=== PATIENT | male | born 1960 | race Caucasian/White ===

== ENCOUNTER 2021-08-21 18:20 | Emergency (ER) | payer OTHER, SELFPAY ==
--- NOTE | 2021-08-21 19:02 | RAD REPORT ---
EXAM DESCRIPTION: RAD - Hand Left 3 View - 08/21/2021 6:50 pm CLINICAL HISTORY: PAIN COMPARISON: No comparisons FINDINGS: No acute fracture or dislocation is seen.
[2021-08-21] MEDS ORDERED: HYDROCODONE/APAP 10/325 TAB ONE (21:03)
[2021-08-21] MEDS ORDERED: IBUPROFEN 400 MG TAB ONE (21:03)
--- NOTE | 2021-08-21 21:58 | ER ---
Nurse's Notes [facility] Name: Blas Sanchez Age: 61 yrs Sex: Male : 1960 Arrival Date: 08/21/2021 Time: 18:22 Bed 11 Private MD: Diagnosis: Other sprain of left thumb Presentation: 08/21 18:33 Chief complaint: Patient states: he fell down on his left hand and his thumb 'went ap3 backward'. Patient states he heard a 'pop' and since then he has been experiencing severe pain in the left thumb and has not been able to move it well. Coronavirus screen: At this time, the client does not indicate any symptoms associated with coronavirus-19. Ebola Screen: No symptoms or risks identified at this time. Initial Sepsis Screen: Does the patient meet any 2 criteria? No. Patient's initial sepsis screen is negative. Does the patient have a suspected source of infection? No. Patient's initial sepsis screen is negative. Risk Assessment: Do you want to hurt yourself or someone else? Patient reports no desire to harm self or others. Onset of symptoms was August 21, 2021. 18:33 Method Of Arrival: Ambulatory ap3 18:33 Acuity: LAVELL 4 ap3 Triage Assessment: 18:35 General: Appears uncomfortable, Behavior is anxious, restless. Pain: Complains of pain ap3 in left hand Pain currently is 10 out of 10 on a pain scale. Pain began suddenly. Neuro: Level of Consciousness is awake, alert, obeys commands, Oriented to person, place, time, situation. Cardiovascular: Patient's skin is warm and dry. Respiratory: Airway is patent Respiratory effort is even, unlabored. Musculoskeletal: Range of motion: limited in IP of left thumb, MCP of left thumb and CMC of left thumb. Injury Description: fall from standing. Historical: - Allergies: 18:34 No Known Allergies; ap3 - PMHx: 18:34 Diabetes mellitus; Hypertensive disorder; ap3 - Immunization history:: Client reports receiving the 2nd dose of the Covid vaccine. - Social history:: Smoking status: Patient denies any tobacco usage or history of. Screenin:37 Abuse screen: Denies threats or abuse. Nutritional screening: No deficits noted. ap3 Tuberculosis screening: No symptoms or risk factors identified. 20:58 Fall Risk None identified. ld1 Assessment: 20:58 Reassessment: See triage assessment. ld1 22:35 Reassessment: Patient appears in no apparent distress at this time. No changes from ld1 previously documented assessment. Patient and/or family updated on plan of care and expected duration. Pain level reassessed. Patient is alert, oriented x 3, equal unlabored respirations, skin warm/dry/pink. Vital Signs: 18:33 Pulse 79; Resp 17; Temp 98.7; Pulse Ox 97% ; Weight 106.59 kg; Height 5 ft. 8 in. ap3 (172.72 cm); Pain 10/10; 18:35 BP 158 / 110; ap3 20:58 BP 149 / 99; Pulse 83; Resp 18; Pulse Ox 98% on R/A; Pain 8/10; ld1 22:35 BP 142 / 98; Pulse 84; Resp 18; Pulse Ox 98% on R/A; Pain 3/10; ld1 18:33 Body Mass Index 35.73 (106.59 kg, 172.72 cm) ap3 ED Course: 18:22 Patient arrived in ED. am2 18:34 Triage completed. ap3 18:37 Arm band placed on right wrist. ap3 18:52 XRAY Hand LEFT 3 View In Process Unspecified. EDMS 19:20 Jourdan Bourne PA is PHCP. cp 19:20 Sandip Lang MD is Attending Physician. cp 20:58 Raquel Dudley, BRANDON is Primary Nurse. ld1 20:58 Patient has correct armband on for positive identification. Placed in gown. Bed in low ld1 position. Call light in reach. Side rails up X2. Pulse ox on. NIBP on. Door closed. Noise minimized. Warm blanket given. 20:58 No provider procedures requiring assistance completed. Patient did not have IV access ld1 during this emergency room visit. 21:57 Moisés Cid MD is Referral Physician. cp Administered Medications: 20:58 Drug: Ibuprofen 800 mg Route: PO; ld1 21:45 Follow up: Response: No adverse reaction eh3 20:58 Drug: HYDROcodone-acetaminophen 10 mg-325 mg 1 tabs Route: PO; ld1 21:45 Follow up: Response: No adverse reaction eh3 Medication: 22:35 VIS not applicable for this client. ld1 Outcome: 21:57 Discharge ordered by . cp 22:35 Discharged to home ambulatory. ld1 22:35 Condition: stable 22:35 Discharge instructions given to patient, family, Instructed on discharge instructions, follow up and referral plans. medication usage, Demonstrated understanding of instructions, follow-up care, medications, Prescriptions given X 3. 22:36 Patient left the ED. ld1 Signatures: Dispatcher [employer] EDMS Jourdan Bourne PA PA cp Moreno, Amanda am2 Seema Orr RN RN ap3 Raquel Dudley RN RN ld1 Debra Buckley 3
--- NOTE | 2021-08-21 21:58 | EDPHYS ---
Physician Documentation [facility] Name: Blas Sanchez Age: 61 yrs Sex: Male : 1960 Arrival Date: 08/21/2021 Time: 18:22 Bed 11 Private MD: ED Physician Sandip Lang HPI: 08/21 21:00 This 61 yrs old Male presents to ER via Ambulatory with complaints of Thumb Injury, cp Hand Pain. 21:00 The patient or guardian reports decreased range of motion, injury, pain. cp 21:00 The complaints affect the left thumb. Context: resulted from a fall, on an outstretched cp hand. Onset: The symptoms/episode began/occurred today. Associated signs and symptoms: Pertinent negatives: cyanosis distally, decreased sensation distally. Historical: - Allergies: 18:34 No Known Allergies; ap3 - PMHx: 18:34 Diabetes mellitus; Hypertensive disorder; ap3 - Immunization history:: Client reports receiving the 2nd dose of the Covid vaccine. - Social history:: Smoking status: Patient denies any tobacco usage or history of. ROS: 21:05 MS/extremity: Positive for pain, swelling, tenderness, of the left thumb, Negative for cp deformity. 21:05 Constitutional: Negative for chills, fever. cp 21:05 Neck: Negative for pain with movement, pain at rest. 21:05 Back: Negative for pain at rest, pain with movement. 21:05 Neuro: Negative for numbness. 21:05 All other systems are negative. Exam: 21:10 Constitutional: The patient appears in no acute distress, alert, awake, well developed, cp well nourished, uncomfortable. 21:10 Head/Face: Normocephalic, atraumatic. cp 21:10 Neck: ROM/movement: is normal, is supple, without pain, no range of motions limitations. 21:10 Chest/axilla: Inspection: normal. 21:10 Cardiovascular: Rate: normal, Pulses: Pulses are 2+ in left radial artery. 21:10 Respiratory: the patient does not display signs of respiratory distress, Respirations: normal. 21:10 Musculoskeletal/extremity: Extremities: grossly normal except: noted in the left thumb: pain, swelling, tenderness, ROM: limited passive range of motion due to pain, in the MCP of left thumb, Perfusion: the extremity is normally perfused throughout, the left thumb Severe pain noted. Vital Signs: 18:33 Pulse 79; Resp 17; Temp 98.7; Pulse Ox 97% ; Weight 106.59 kg; Height 5 ft. 8 in. ap3 (172.72 cm); Pain 10/10; 18:35 BP 158 / 110; ap3 20:58 BP 149 / 99; Pulse 83; Resp 18; Pulse Ox 98% on R/A; Pain 8/10; ld1 22:35 BP 142 / 98; Pulse 84; Resp 18; Pulse Ox 98% on R/A; Pain 3/10; ld1 18:33 Body Mass Index 35.73 (106.59 kg, 172.72 cm) ap3 Procedures: 22:15 Splinting: Splint applied to left thumb using Orthoglass splint, thumb spica type. cp applied by myself. tech. Examined by me, post splint application: neurovascular intact, Patient tolerated well. MDM: 20:43 Patient medically screened. cp 21:57 Data reviewed: vital signs, nurses notes, radiologic studies, plain films. cp 21:57 Differential diagnosis: dislocation, closed fracture, sprain. Test interpretation: by cp ED physician or midlevel provider: plain radiologic studies. Counseling: I had a detailed discussion with the patient and/or guardian regarding: the historical points, exam findings, and any diagnostic results supporting the discharge/admit diagnosis, radiology results, the need for outpatient follow up, a hand specialist, to return to the emergency department if symptoms worsen or persist or if there are any questions or concerns that arise at home. Response to treatment: the patient's symptoms have markedly improved after treatment, and as a result, I will discharge patient. 08/21 18:38 Order name: XRAY Hand LEFT 3 View ap3 08/21 21:54 Order name: Thumb Spica Splint cp Administered Medications: 20:58 Drug: Ibuprofen 800 mg Route: PO; ld1 21:45 Follow up: Response: No adverse reaction eh3 20:58 Drug: HYDROcodone-acetaminophen 10 mg-325 mg 1 tabs Route: PO; ld1 21:45 Follow up: Response: No adverse reaction eh3 Disposition Summary: 08/21/21 21:57 Discharge Ordered Location: Home cp Problem: new cp Symptoms: have improved cp Condition: Stable cp Diagnosis - Other sprain of left thumb cp Followup: cp - With: Moisés Cid MD - When: 2 - 3 days - Reason: Recheck today's complaints Discharge Instructions: - Discharge Summary Sheet cp - Thumb Sprain cp Forms: - Medication Reconciliation Form cp - Thank You Letter cp - Antibiotic Education cp - Prescription Opioid Use cp Prescriptions: - Ibuprofen 800 mg Oral Tablet - take 1 tablet by ORAL route every 8 hours As needed take with food; 30 tablet; cp Refills: 0, Product Selection Permitted - Tramadol 50 mg Oral Tablet - take 1 tablet by ORAL route every 8 hours as needed; 12 tablet; Refills: 0, cp Product Selection Permitted Addendum: 08/24/2021 03:56 Co-signature as Attending Physician, Sandip Lang MD. [facility] Signatures: Dispatcher [employer] EDMS Jourdan Bourne PA PA cp Prokisch, Amanda, RN RN ap3 Sandip Lang MD MD mh7 Raquel Dudley RN RN ld1 Debra Buckley 3
[2021-08-21 23:35] VITALS: TEMP 98.7
[2021-08-21 23:37] VITALS: O2SAT 98
[2021-08-21 23:40] VITALS: BP 142/98
== END 2021-08-21 22:36 | disposition home or self-care (01) ==
LOC: ER 18:20
DX: S63.682A Other sprain of left thumb, initial encounter (principal); E11.9 Type 2 diabetes mellitus without complications; I10 Essential (primary) hypertension
CPT/HCPCS: 99284

== ENCOUNTER 2023-05-02 11:29 | Inpatient (IN) | payer MEDICAID, OTHER, SELFPAY ==
[2023-05-02] MEDS ORDERED: NA CHLORIDE 0.9% 1,000 ML ONE ×2 (12:07→17:36)
[2023-05-02] MEDS ORDERED: INSULIN REGULAR (HUMAN) 100 UNIT/ML ONE ×3 (12:28→21:59)
[2023-05-02 12:31] LABS: Absolute Basophils 0.1 K/uL (0-0.5); Absolute Lymphocytes (CBC) 1.4 K/uL (0.7-4.9); Absolute Monocytes 0.7 K/uL (0.1-1.3); Absolute Neutrophil 6.2 K/uL (1.8-8.0); Basophils % 0.6 % (0-1.3); Eosinophils % 0.2 % (0-4.4); Hematocrit 42.6 % (39.6-49.0); Hemoglobin 13.6 g/dL (13.6-17.9); Lymphocytes % 16.5 % (15.3-44.8); MCH 30.2 pg (27.0-35.0); MCV 94.5 fL (80-100); MPV 7.6 fL (7.6-11.3); Monocytes % 8.9 % (3.3-12.3); Neutrophils % 73.8 % (41.7-73.7); Platelets 337 thou/uL (152-406); RBC Red Blood Cell Count 4.51 M/uL (4.33-5.43); Red Cell Distribution Width 13.2 % (12.1-15.2)
[2023-05-02 12:39] LABS: PT Prothrombin Time 11.1 SECONDS (9.5-12.5); PTT, Activated Partial Thromb 30.8 SECONDS (24.3-36.9); Protime INR 1.01
[2023-05-02 12:47] LABS: SARS-CoV-2 Antigen CONTROL BLUE LINE VIS/BG OK; SARS-CoV-2 Antigen Rapid Res Negative (Negative)
[2023-05-02 12:50] LABS: Specific Gravity 1.028 (1.005-1.030); Sqamous Epithelial <5 /HPF (None Seen); Urine Bacteria <20 /HPF (<20); Urine Bilirubin NEGATIVE (Negative); Urine Blood 3+ (OVER) (Negative); Urine Clarity Clear (Clear); Urine Color Colorless (Yellow); Urine Culture Reflex Order NOT NEEDED; Urine Glucose 4+ (Over) (Negative); Urine Ketones 1+ (Negative); Urine Microscopic Reflex YN ORDER UMIC; Urine Mucus Slight /HPF (None Seen); Urine Nitrite NEGATIVE (Negative); Urine Protein TRACE (Negative); Urine RBC >50 /HPF (None Seen); Urine Urobilinogen Normal (Normal); Urine WBC <5 /HPF (<5); Urine Yeast (Budding) Occasional /HPF (None Seen)
[2023-05-02 12:54] LABS: Albumin 2.2 g/dL (3.4-5.0); Albumin/Globulin Ratio 0.5 (1.1-1.8); Anion Gap 15.5 mEq/L (5.0-15.0); Bilirubin Total 0.7 mg/dL (0.2-1.0); Globulin 4.6 g/dL (2.3-3.5); Potassium 4.5 mEq/L (3.5-5.1); Protein, Total 6.8 g/dL (6.4-8.2); Troponin High Sensitivity 5.6 pg/mL (<58.9)
--- NOTE | 2023-05-02 12:56 | RAD REPORT ---
EXAM DESCRIPTION: RAD - Chest Single View - 05/02/2023 12:48 pm CLINICAL HISTORY: Cough;Dyspnea Chest pain. COMPARISON: No comparisons FINDINGS: Portable technique limits examination quality. Moderate airspace opacity is present in the left mid lung most likely representing pneumonia. The heather gs are otherwise clear. The heart is normal in size. No displaced fractures. IMPRESSION: Suspected left mid lung pneumonia. Follow-up imaging after appropriate treatment to ensu re clearance is recommended.
--- NOTE | 2023-05-02 13:38 | RAD REPORT ---
EXAM DESCRIPTION: CTAbdomen Pelvis W Contrast - 05/02/2023 1:17 pm CLINICAL HISTORY: Abdominal pain. Abd pain;Nausea / vomiting COMPARISON: No comparisons TECHNIQUE: Biphasic CT imaging of the abdomen and pelvis was performed with 100 ml non-ionic IV cont rast. All CT scans are performed using dose optimization technique as appropriate and may include automated exposure control or mA/KV adjustment according to patient size. FINDINGS: The lung bases are clear. The liver demonstrates mild fatty infiltration. The spleen, pancreas, and kidneys are within normal l imits. Nodularity is seen of both adrenal glands, likely benign. No bowel obstruction, free air, free fluid or abscess. Prominent stool is present throughout the colo n. The appendix is normal. No evidence of significant lymphadenopathy. No suspicious bony findings. IMPRESSION: No acute intra-abdominal or pelvic finding. Mild fecal retention. Mild fatty liver.
[2023-05-02] MEDS ORDERED: AZITHROMYCIN 500 MG INJ IVPB ONE (13:55)
[2023-05-02] MEDS ORDERED: CEFTRIAXONE 1000 MG/VIAL ONE (13:55)
[2023-05-02] MEDS ORDERED: NA CHLORIDE 0.9% 50 ML ONE (13:57)
[2023-05-02] MEDS ORDERED: NA CHLORIDE 0.9% 250 ML ONE (13:57)
--- NOTE | 2023-05-02 14:03 | EDPHYS ---
Physician Documentation [facility] Name: Blas Sanchez Age: 63 yrs Sex: Male : 1960 Arrival Date: 05/02/2023 Time: 11:29 Bed 20 Private MD: ED Physician Juwan Morse HPI: 05/01 11:51 This 63 yrs old Male presents to ER via Wheelchair with complaints of Breathing rn Difficulty, Abdominal Pain, Vomiting. 11:51 The patient has shortness of breath at rest, with light activity. rn 11:51 Onset: The symptoms/episode began/occurred 5 day(s) ago. Duration: The symptoms are rn continuous. The patient's shortness of breath is aggravated by coughing, is alleviated by nothing. Severity of symptoms: At their worst the symptoms were moderate in the emergency department the symptoms are unchanged. The patient has not experienced similar symptoms in the past. Patient reports shortness of breath, feeling ill with vomiting and diarrhea for the last 4 to 5 days. Began to have chest discomfort and worsening shortness of breath yesterday. 911 was called but was not transported for multiple reasons. Patient reports increased shortness of breath today so came in for evaluation. Reports left-sided chest pain with deep inspiration, productive cough, still having vomiting and diarrhea.. Historical: - Allergies: 11:39 No Known Allergies; iw - PMHx: 11:39 diabetes mellitus; Hypertensive disorder; neuropathy; iw - PSHx: 11:39 None; iw - Immunization history:: Adult Immunizations not up to date. - Social history:: Smoking status: Patient/guardian denies using tobacco, the patient reports quitting approximately 15 years ago. - Family history:: not pertinent. - Hospitalizations: : No recent hospitalization is reported. ROS: 11:51 Constitutional: Negative for fever, chills, and weight loss, Cardiovascular: Negative rn for chest pain, palpitations, and edema, Respiratory: Positive for cough and shortness of breath Abdomen/GI: Positive for abdominal pain/nausea/vomiting/diarrhea Back: Negative for injury and pain, MS/Extremity: Negative for injury and deformity, Skin: Negative for injury, rash, and discoloration, Neuro: Positive for generalized weakness Exam: 11:51 Constitutional: This is a well developed, well nourished patient who is awake, alert, rn moderate tachypnea Head/Face: Normocephalic, atraumatic. ENT: Dry mucous membranes, no stridor Cardiovascular: Tachycardic, regular. Respiratory: Moderate tachypnea, diminished bilateral bases Abdomen/GI: Soft, nontender Skin: Mottled skin of abdominal wall MS/ Extremity: Pulses equal, no cyanosis. Neuro: Awake and alert, GCS 15 Vital Signs: 11:37 BP 138 / 106; Pulse 116; Resp 19; Temp 97.8; Pulse Ox 99% on R/A; Weight 79.38 kg; iw Height 5 ft. 8 in. ; 12:30 BP 141 / 106; Pulse 106; Resp 28; Pulse Ox 96% on R/A; db 13:41 BP 134 / 107; Pulse 99; Resp 18; Pulse Ox 96% on R/A; db 14:00 BP 116 / 88; Pulse 95; Resp 18; Pulse Ox 97% on R/A; db 15:00 BP 128 / 94; Pulse 100; Resp 20; Pulse Ox 97% on R/A; db 11:37 Body Mass Index 26.61 (79.38 kg, 172.72 cm) iw MDM: 11:34 Patient medically screened. rn 14:00 Differential diagnosis: Anemia Chronic Obstructive Pulmonary Disease Myocardial rn Infarction pneumonia, Pneumothorax pulmonary edema. Data reviewed: vital signs, nurses notes, lab test result(s), EKG, radiologic studies, and as a result, I will admit patient. Care significantly affected by the following chronic conditions: Diabetes, Hypertension. Counseling: I had a detailed discussion with the patient and/or guardian regarding the historical points, exam findings, and any diagnostic results supporting the discharge/admit diagnosis, lab results, radiology results, the need for further work-up and treatment in the hospital. Response to treatment: the patient's symptoms have mildly improved after treatment, and as a result, I will admit patient. ED course: I personally spent 35 minutes engaged in work directly related to the individual patient's care. This does not include any time spent performing procedures. The patient has been deemed critically ill because of severe hyperglycemia greater than 1000, altered mental status, pneumonia and management of possible sepsis and consultation time.. 05/01 11:50 Order name: Blood Culture Adult (2) rn 05/01 11:50 Order name: CBC with Diff; Complete Time: 12:40 rn 05/01 11:50 Order name: CMP; Complete Time: 12:57 rn 05/01 11:50 Order name: Lactate w/ 2H reflex if indic.; Complete Time: 12:57 rn 05/01 11:50 Order name: Protime (+inr); Complete Time: 12:40 rn 05/01 11:50 Order name: Ptt, Activated; Complete Time: 12:40 rn 05/01 11:50 Order name: Urinalysis w/ reflexes; Complete Time: 12:57 rn 05/01 11:50 Order name: BNP; Complete Time: 12:57 rn 05/01 11:50 Order name: SARS RAPID; Complete Time: 12:57 rn 05/01 11:50 Order name: Flu; Complete Time: 12:57 rn 05/01 11:51 Order name: Troponin High Sensitivity; Complete Time: 12:57 rn 05/01 12:38 Order name: Glucose, Ancillary Testing; Complete Time: 12:40 EDMS 05/01 14:04 Order name: Basic Metabolic Panel EDMS 05/01 14:04 Order name: Basic Metabolic Panel EDMS 05/01 14:04 Order name: Basic Metabolic Panel EDMS 05/01 14:04 Order name: Basic Metabolic Panel EDMS 05/01 14:04 Order name: Basic Metabolic Panel EDMS 05/01 14:04 Order name: Basic Metabolic Panel EDMS 05/01 14:04 Order name: Basic Metabolic Panel EDMS 05/01 14:04 Order name: CBC with Automated Diff EDMS 05/01 14:04 Order name: CBC with Automated Diff EDMS 05/01 14:04 Order name: CBC with Automated Diff EDMS 05/01 14:04 Order name: CBC with Automated Diff EDMS 05/01 14:04 Order name: Lipid Profile EDMS 05/01 14:04 Order name: Lipid Profile EDMS 05/01 14:04 Order name: Magnesium EDMS 05/01 14:04 Order name: Magnesium EDMS 05/01 14:04 Order name: Magnesium EDMS 05/01 14:04 Order name: Magnesium EDMS 05/01 11:50 Order name: Chest Single View XRAY; Complete Time: 12:57 rn 05/01 11:50 Order name: CT Abd/Pelvis - IV Contrast Only; Complete Time: 13:46 rn 05/01 11:50 Order name: EKG; Complete Time: 11:51 rn 05/01 11:50 Order name: Accucheck; Complete Time: 13: rn 05/01 11:50 Order name: Cardiac monitoring; Complete Time: 13: rn 05/01 11:50 Order name: EKG - Nurse/Tech; Complete Time: 12: rn 05/01 11:50 Order name: IV Saline Lock - Large Bore; Complete Time: 12: rn 05/01 11:50 Order name: Labs collected and sent; Complete Time: 12: rn 05/01 11:50 Order name: O2 Per Protocol; Complete Time: 13: rn 05/01 11:50 Order name: O2 Sat Monitoring; Complete Time: 13: rn 05/01 11:50 Order name: Vital Signs; Complete Time: 13: rn Administered Medications: 12:20 Drug: NS 0.9% IV 1000 ml IV at 1000 ml once Route: IV; Rate: 1000 ml; Site: left db antecubital; 16:00 Follow up: Response: No adverse reaction; IV Status: Completed infusion; IV Intake: db 1000ml 12:29 Drug: Insulin Regular Human Sub-Q 10 units Sub-Q once {Co-Signature: db (velma Kenyon RN).} Route: Sub-Q; Site: right upper arm; 16:14 Follow up: Response: No adverse reaction db 13:59 Drug: Insulin Regular Human IVP 10 units IVP once {Co-Signature: kd3 (Shira Vines RN).} Route: IVP; Site: left antecubital; 16:00 Follow up: Response: No adverse reaction db 14:14 Drug: Rocephin IV 1 grams IV at calculated rate once; Given slow IV push per pharmacy kd3 instructions Route: IV; Rate: calculated rate; Site: left antecubital; 16:14 Follow up: Response: No adverse reaction; IV Status: Completed infusion db 14:14 Drug: Zithromax IVPB 500 mg IVPB once over 1 hrs; mix in 250 mL NS Route: IVPB; Infused kd3 Over: 1 hrs; Site: left antecubital; 16:00 Follow up: Response: No adverse reaction; IV Status: Completed infusion; IV Intake: db 250ml Disposition: 14:02 Critical Care:. rn Disposition Summary: 05/02/23 14:03 Hospitalization Ordered Notes: Hospitalization Status: Inpatient Admission rn Provider: Markos Lanza rn Condition: Stable rn Problem: new rn Symptoms: have improved rn Bed/Room Type: Standard rn Location: Intensive Care Unit(05/02/23 15:01) eb Room Assignment: 6-(05/02/23 15:01) eb Diagnosis - Pneumonia, unspecified organism rn - Hyperglycemia, unspecified rn - Dehydration rn - Weakness rn Forms: - Medication Reconciliation Form rn - SBAR form rn - Leadership Thank You Letter city attorney time excluding procedures: 14:02 Critical care time: Bedside Care: 35 minutes. Total time: 35 minutes rn Signatures: Dispatcher [employer] EDAbbey Fitzpatrick, RN RN Juwan Damian MD MD rn Botello, Elizabeth eb Doucette, Kyli, RN RN kd3 Ivette Vergara RN RN Lisa Nicolas, RN RN Lisa Lin RN Shira Wei RN kd3 Corrections: (The following items were deleted from the chart) 15:01 14:03 Telemetry/MedSurg (Inpatient) rn eb 15:01 14:03 rn eb
--- NOTE | 2023-05-02 14:03 | ER ---
Nurse's Notes [facility] Name: lBas Sanchez Age: 63 yrs Sex: Male : 1960 Arrival Date: 05/02/2023 Time: 11:29 Bed 20 Private MD: Diagnosis: Pneumonia, unspecified organism;Hyperglycemia, unspecified;Dehydration;Weakness Presentation: 05/01 11:37 Chief complaint: Patient states: cough, dry heaving, diarrhea, chills, not feeling well iw X 10 days , no fever. Coronavirus screen: Client presents with at least one sign or symptom that may indicate coronavirus-19. Ebola Screen: Patient negative for fever greater than or equal to 101.5 degrees Fahrenheit, and additional compatible Ebola Virus Disease symptoms Patient denies exposure to infectious person. Patient denies travel to an Ebola-affected area in the 21 days before illness onset. No symptoms or risks identified at this time. Initial Sepsis Screen: Does the patient meet any 2 criteria? HR > 90 bpm. Does the patient have a suspected source of infection? No. Patient's initial sepsis screen is negative. Risk Assessment: Do you want to hurt yourself or someone else? Patient reports no desire to harm self or others. Onset of symptoms was April 22, 2023. 11:37 Method Of Arrival: Wheelchair iw 11:37 Acuity: LAVELL 3 iw Triage Assessment: 14:00 General: Appears in no apparent distress. uncomfortable. General: Behavior is calm, db cooperative. Respiratory:. Respiratory: Reports shortness of breath labored breathing Onset: The symptoms/episode began/occurred gradually, the patient has moderate shortness of breath. Historical: - Allergies: 11:39 No Known Allergies; iw - PMHx: 11:39 diabetes mellitus; Hypertensive disorder; neuropathy; iw - PSHx: 11:39 None; iw - Immunization history:: Adult Immunizations not up to date. - Social history:: Smoking status: Patient/guardian denies using tobacco, the patient reports quitting approximately 15 years ago. - Family history:: not pertinent. - Hospitalizations: : No recent hospitalization is reported. Screenin:[address] [facility] ED Fall Risk Assessment (Adult) History of falling in the last 3 months, db including since admission No falls in past 3 months (0 pts) Confusion or Disorientation No (0 pts) Intoxicated or Sedated No (0 pts) Impaired Gait No (0 pts) Mobility Assist Device Used No (0 pt) Altered Elimination No (0 pt) Score/Fall Risk Level 0 - 2 = Low Risk Oriented to surroundings, Maintained a safe environment. Abuse screen: Denies threats or abuse. Denies injuries from another. Nutritional screening: No deficits noted. Tuberculosis screening: No symptoms or risk factors identified. Assessment: 12:30 Reassessment: Patient appears in no apparent distress at this time. Patient and/or db family updated on plan of care and expected duration. Pain level reassessed. Patient is alert, oriented x 3, equal unlabored respirations, skin warm/dry/pink. General: Appears in no apparent distress. uncomfortable. Respiratory: Airway is patent Respiratory effort is even, unlabored, Respiratory pattern is regular, symmetrical, Respiratory: 13:00 Reassessment: Patient appears in no apparent distress at this time. Patient and/or db family updated on plan of care and expected duration. Pain level reassessed. Patient is alert, oriented x 3, equal unlabored respirations, skin warm/dry/pink. General: Appears in no apparent distress. uncomfortable, Behavior is calm, cooperative. Pain: Complains of pain in abdomen. Neuro: Level of Consciousness is awake, alert, obeys commands, Oriented to person, place, time, situation. Cardiovascular: Rhythm is regular. Respiratory: Airway is patent Respiratory effort is even, unlabored, Respiratory pattern is regular, symmetrical. 14:00 Reassessment: Patient appears in no apparent distress at this time. Patient and/or db family updated on plan of care and expected duration. Pain level reassessed. Patient is alert, oriented x 3, equal unlabored respirations, skin warm/dry/pink. 15:31 Reassessment: ATTEMPTED TO GIVE PATIENT REPORT TO ICU. NURSE ON 4TH FLOOR WITH A db PATIENT WILL GET REPORT WHEN RETURNS. Respiratory:. 15:48 Reassessment: PATIENT REPORT GIVEN TO ICU. db Vital Signs: 11:37 BP 138 / 106; Pulse 116; Resp 19; Temp 97.8; Pulse Ox 99% on R/A; Weight 79.38 kg; iw Height 5 ft. 8 in. ; 12:30 BP 141 / 106; Pulse 106; Resp 28; Pulse Ox 96% on R/A; db 13:41 BP 134 / 107; Pulse 99; Resp 18; Pulse Ox 96% on R/A; db 14:00 BP 116 / 88; Pulse 95; Resp 18; Pulse Ox 97% on R/A; db 15:00 BP 128 / 94; Pulse 100; Resp 20; Pulse Ox 97% on R/A; db 11:37 Body Mass Index 26.61 (79.38 kg, 172.72 cm) iw ED Course: 11:31 Patient arrived in ED. rg4 11:34 Juwan Morse MD is Attending Physician. rn 11:39 Triage completed. iw 11:40 Arm band placed on. iw 12:05 Lisa Kenyon, RN is Primary Nurse. db 12:20 Initial lab(s) drawn, by me, sent to lab. First set of blood cultures drawn EKG done, bc6 by ED staff, reviewed by Juwan Morse MD COVID swab sent to lab. Flu and/or RSV swab sent to lab. 12:22 Troponin High Sensitivity Sent. bc6 12:22 Flu Sent. bc6 12:22 SARS RAPID Sent. bc6 12:22 BNP Sent. bc6 12:23 Blood Culture Adult (2) Sent. bc6 12:23 CBC with Diff Sent. bc6 12:23 CMP Sent. bc6 12:23 Lactate w/ 2H reflex if indic. Sent. bc6 12:23 Protime (+inr) Sent. bc6 12:23 Ptt, Activated Sent. bc6 12:23 Inserted saline lock: 20 gauge in left antecubital area, using aseptic technique. Blood bc6 collected. 12:50 Chest Single View XRAY In Process Unspecified. EDMS 13:[address] via wheelchair. db 13:12 Patient has correct armband on for positive identification. Placed in gown. Bed in low db position. Call light in reach. Side rails up X 1. Provided Education on: LABS, RADIOLOGY, . Client placed on continuous cardiac and pulse oximetry monitoring. NIBP monitoring applied. seam stay stitcher on. Pulse ox on. NIBP on. Warm blanket given. 13:19 CT Abd/Pelvis - IV Contrast Only In Process Unspecified. EDMS 14:02 Markos Lanza MD is Hospitalizing Provider. rn 15:34 No provider procedures requiring assistance completed. Patient admitted, IV remains in db place. 15:35 Repeat lab(s) drawn. by me, sent to lab. db 15:35 Inserted saline lock: 22 gauge in right antecubital area, using aseptic technique. db Blood collected. Administered Medications: 12:20 Drug: NS 0.9% IV 1000 ml IV at 1000 ml once Route: IV; Rate: 1000 ml; Site: left db antecubital; 16:00 Follow up: Response: No adverse reaction; IV Status: Completed infusion; IV Intake: db 1000ml 12:29 Drug: Insulin Regular Human Sub-Q 10 units Sub-Q once {Co-Signature: evlma Martínez RN).} Route: Sub-Q; Site: right upper arm; 16:14 Follow up: Response: No adverse reaction db 13:59 Drug: Insulin Regular Human IVP 10 units IVP once {Co-Signature: [email or web address] (Shira Vines RN).} Route: IVP; Site: left antecubital; 16:00 Follow up: Response: No adverse reaction db 14:14 Drug: Rocephin IV 1 grams IV at calculated rate once; Given slow IV push per pharmacy kd3 instructions Route: IV; Rate: calculated rate; Site: left antecubital; 16:14 Follow up: Response: No adverse reaction; IV Status: Completed infusion db 14:14 Drug: Zithromax IVPB 500 mg IVPB once over 1 hrs; mix in 250 mL NS Route: IVPB; Infused kd3 Over: 1 hrs; Site: left antecubital; 16:00 Follow up: Response: No adverse reaction; IV Status: Completed infusion; IV Intake: db 250ml Medication: 15:34 VIS not applicable for this client. db Intake: 16:00 IV: 250ml; Total: 250ml. db 16:00 IV: 1000ml; Total: 1250ml. db Outcome: 14:03 Decision to Hospitalize by Provider. rn 15:34 Admitted to ICU accompanied by nurse, manoj 15:34 Condition: stable 15:34 Instructed on the need for admit, 16:15 Patient left the ED. db Signatures: Dispatcher [employer] EDAbbey Fitzpatrick RN RN iw Nieto, Roman, MD MD rn Garcia, Rubi rg4 Shira Vines RN RN kd3 Oliver, Kathy, RN RN ko1 Benton, Danielle RN Eliana Barone bc6 Lisa Kenyon RN db Shira Vines RN kd3 Corrections: (The following items were deleted from the chart) 15:34 13:00 General: Appears in no apparent distress. comfortable, Behavior is calm, db cooperative, db 16:12 15:35 Repeat lab(s) drawn. by me, sent to lab. db db
--- NOTE | 2023-05-02 14:05 | P.HP ---
Certification for Inpatient Patient admitted to: Inpatient With expected LOS: <2 Midnights <Bernie Sepulveda - Last Filed: 05/02/23 15:32> Patient History Date of Service: 05/02/23 <Markos Lanza - Last Filed: 05/02/23 14:44> Date of Service: 05/02/23 Reason for admission: HHNK History of Present Illness: 63 year old male with past medical history of diabetes mellitus; Hypertensive disorder; neuropathy presents to the ER via EMS for shortness of breath. He reports associated left-sided chest pain, productive cough, nausea vomiting diarrhea. He reports symptoms started 4 to 5 days ago is progressively getting worse. No reported fever, edema, dizziness. 7 BP 138 / 106; Pulse 116; Resp 19; Temp 97.8; Pulse Ox 99% on R/A; Weight 79.38 kg; Height 5 ft. 8 in Plan to admit for HHNK, pneumonia, dehydration, laboratory evaluation blood glucose greater than 1000, pseudohyponatremia, elevated BNP 712, early left shift 73.8, chest x- ray IMPRESSION: Suspected left mid lung pneumonia. Follow-up imaging after appropriate treatment to ensure clearance is recommended., CT of the abdomen pelvis IMPRESSION: No acute intra-abdominal or pelvic finding. Mild fecal retention. Mild fatty liver. <CocoBernie - Last Filed: 05/02/23 15:32> Review of Systems per HPI <KemarhazelBernie - Last Filed: 05/02/23 15:32> Physical Examination - Studies Laboratory Data (last 24 hrs) 05/02/23 05/02/23 05/02/23 12:20 12:20 12:20 WBC 8.40 Hgb 13.6 Hct 42.6 Plt Count 337 PT 11.1 INR 1.01 APTT 30.8 Sodium 125 L Potassium 4.5 BUN 34 H Creatinine 1.07 Glucose 1013 H* Total Bilirubin 0.7 AST 14 L ALT 27 Alkaline Phosphatase 354 H Microbiology Data (last 24 hrs): 05/02/23 12:20 Nasopharnyx Influenza Type A Antigen Screen - Final 05/02/23 12:20 Nasopharnyx Influenza Type B Antigen Screen - Final <Markos Lanza - Last Filed: 05/02/23 14:44> - Physical Exam General: Alert, In no apparent distress, Confused HEENT: Atraumatic, Normocephalic Neck: Supple, JVD not distended Respiratory: Expiratory wheezes, Inspiratory wheezes Cardiovascular: No edema, Normal pulses, Regular rate/rhythm Gastrointestinal: Normal bowel sounds, Other, Hyperactive Musculoskeletal: No clubbing (Nausea vomiting diarrhea), No swelling Integumentary: No rashes, No significant lesion Neurological: Other (Confused alert and oriented x 2) - Studies Laboratory Data (last 24 hrs) 05/02/23 05/02/23 05/02/23 12:20 12:20 12:20 WBC 8.40 Hgb 13.6 Hct 42.6 Plt Count 337 PT 11.1 INR 1.01 APTT 30.8 Sodium 125 L Potassium 4.5 BUN 34 H Creatinine 1.07 Glucose 1013 H* Total Bilirubin 0.7 AST 14 L ALT 27 Alkaline Phosphatase 354 H Microbiology Data (last 24 hrs): 05/02/23 12:20 Nasopharnyx Influenza Type A Antigen Screen - Final 05/02/23 12:20 Nasopharnyx Influenza Type B Antigen Screen - Final <Bernie Sepulveda - Last Filed: 05/02/23 15:32> Assessment and Plan - Plan Pt seen and examined. I agree with the note by the MICA SPREADER. Pt is a 63 yo male with past medical history of htn, DM,and neuropathy who presents with SOB. The SOB started a few days ago and progressively worsened to be associated with left- sided chest pain, productive cough, nausea, vomiting, and diarrhea. On ad mission, lab studies show wbc 8.4, Hgb 13.6, K 4.5, Cr 1.07 and glucose 1013. CXR shows left mid lung pneumonia. CT abd/pelvis is unremarkable except mild fecal retention and mild fatty liver. At bedside, pt is in NAD A/P: HHS: blood sugar is 1013. Will continue insulin drip per DKA protocol. Monitor anion gap. Will continue accuchek, SSI and ADA diet when blood glucose improve. Left mid lung pneumonia: Will continue iv abx. follow up blood cx. Fatty liver: Per CT abd: Will check LFTs Constipation: Will give prn miralax. Code: full <Markos Lanza - Last Filed: 03/22/24 14:44> - Plan Assessment plan HHNK Diabetes with hyperglycemia blood glucose greater than 1000 Lack of insurance Medication noncompliance Admit to ICU, insulin drip, presents to the ER via EMS for shortness of breath. He reports associated left- sided chest pain, productive cough, nausea vomiting diarrhea. He reports symptoms started 4 to 5 days ago is progressively getting worse. BP 138 / 106; Pulse 116; Resp 19; Temp 97.8; Pulse Ox 99% on R/A; Weight 79.38 kg; Height 5 ft. 8 in Plan to admit for HHNK, pneumonia, dehydration, laboratory evaluation blood glucose greater than 1000, pseudohyponatremia, elevated BNP 712, early left shift 73.8, chest x-ray IMPRESSION: Suspected left mid lung pneumonia. Follow-up imaging after appropriate treatment to ensure clearance is recommended., CT of the abdomen pelvis IMPRESSION: No acute intra-abdominal or pelvic finding. Mild fecal retention. Mild fatty liver. Acute hypoxic respiratory failure secondary to pneumonia History of COPD Former smoker IV Levaquin, IV cefepime Nebs, steroids, Pulmonary consult Fatty liver Hypertensive disorder neuropathy Full code Diet n.p.o. except ice DVT Lovenox Disposition Home Discharge Plan: Home - Advance Directives Does patient have a Living Will: No Does patient have a Durable POA for Healthcare: No - Code Status/Comfort Care Code Status: Full Code Critical Care: Yes Time Spent Managing Pts Care (In Minutes): 65 <Bernie Sepulveda - Last Filed: 05/02/23 15:32>
[2023-05-02] MEDS ORDERED: ALBUTEROL 2.5 MG/3 ML NEB SOL NEB PRN (14:23)
[2023-05-02] MEDS ORDERED: MORPHINE 4 MG/ML SYR IV PRN (14:30)
[2023-05-02] MEDS: CEFTRIAXONE 1,000 MG in NA CHLORIDE 0.9% 50 ML IVPB SCH (15:00)
[2023-05-02] MEDS: ARFORMOTEROL TARTRATE 15 MCG/2 ML VIAL.NEB NEB SCH (15:06)
[2023-05-02] MEDS: INSULIN -REGULAR HUMAN 100 UNIT in NA CHLORIDE 0.9% 100 ML IV SCH (15:10)
[2023-05-02 16:16] LABS: Anion Gap 10.8 mEq/L (5.0-15.0); Potassium 3.8 mEq/L (3.5-5.1)
[2023-05-02] MEDS: ONDANSETRON 4 MG/2 ML VIAL IV PRN (16:48)
[2023-05-02] MEDS ORDERED: ENOXAPARIN 40 MG/0.4 ML SQ ONE (17:36)
[2023-05-02] MEDS ORDERED: Levofloxacin 750mg IV 750 MG/150 ML BAG IV ONE (17:36)
[2023-05-02] MEDS: NA CHLORIDE 0.9% 1,000 ML IV SCH (17:40)
[2023-05-02] MEDS: Levofloxacin 750mg IV 750 MG/150 ML BAG IV SCH (17:40)
[2023-05-02] MEDS: ENOXAPARIN 40 MG/0.4 ML SQ SCH (17:40)
[2023-05-02] MEDS: INFLUENZA VACCINE (for 6+ mo) 0.5 ML DOSE IMVAC ONE (18:00)
[2023-05-02 18:04] VITALS: BMI 27.2
[2023-05-02 18:09] LABS: Specific Gravity > 1.030 (1.005-1.030); Sqamous Epithelial None Seen /HPF (None Seen); Urine Bacteria None Seen /HPF (<20); Urine Bilirubin NEGATIVE (Negative); Urine Blood 3+ (OVER) (Negative); Urine Clarity Clear (Clear); Urine Color Colorless (Yellow); Urine Culture Reflex Order NOT NEEDED; Urine Glucose 4+ (Over) (Negative); Urine Ketones NEGATIVE (Negative); Urine Microscopic Reflex YN ORDER UMIC; Urine Mucus Slight /HPF (None Seen); Urine Nitrite NEGATIVE (Negative); Urine Protein 1+ (Negative); Urine RBC >50 /HPF (None Seen); Urine Urobilinogen Normal (Normal); Urine Yeast (Budding) Many /HPF (None Seen)
[2023-05-02 19:24] LABS: Anion Gap 10.9 mEq/L (5.0-15.0); Potassium 3.9 mEq/L (3.5-5.1)
[2023-05-02] MEDS ORDERED: D50W 25 GM/50 ML SYRINGE IV PRN (21:02)
[2023-05-02] MEDS ORDERED: GLUCAGON 1 MG/VIAL IM PRN (21:02)
[2023-05-02] MEDS ORDERED: D10W 125 ML IV PRN (21:05)
--- NOTE | 2023-05-02 21:46 | RAD REPORT ---
EXAM DESCRIPTION: RAD - Chest Single View - 05/02/2023 9:39 pm CLINICAL HISTORY: Dyspnea. Assess for volume overload Chest pain. COMPARISON: Chest Single View dated 05/02/2023 FINDINGS: Portable technique limits examination quality. Moderate opacity in the left mid lung is present likely representing pneumonia. After appropriate david atment, follow-up film would be recommended to ensure clearance. The heart is normal in size. No disp laced fractures. IMPRESSION: Suspected left mid lung pneumonia.
[2023-05-02] MEDS: INSULIN REGULAR (HUMAN) 100 UNIT/ML SQ SCH (22:01)
[2023-05-02 22:29] LABS: Anion Gap 7.7 mEq/L (5.0-15.0); Potassium 3.7 mEq/L (3.5-5.1)
[2023-05-03] MEDS ORDERED: MORPHINE 2 MG/ML SYR ONE ×4 (02:28→16:28)
[2023-05-03] MEDS: MORPHINE 2 MG/ML SYR IV PRN (02:29)
[2023-05-03 02:48] LABS: Absolute Basophils 0.1 K/uL (0-0.5); Absolute Eosinophils 0.1 K/uL (0-0.5); Absolute Lymphocytes (CBC) 2.2 K/uL (0.7-4.9); Absolute Neutrophil 6.6 K/uL (1.8-8.0); Basophils % 0.6 % (0-1.3); Eosinophils % 0.7 % (0-4.4); Hematocrit 38.5 % (39.6-49.0); Hemoglobin 13.1 g/dL (13.6-17.9); Lymphocytes % 22.4 % (15.3-44.8); MCH 30.5 pg (27.0-35.0); MCV 89.6 fL (80-100); Monocytes % 10.2 % (3.3-12.3); Neutrophils % 66.1 % (41.7-73.7); Nucleated Red Blood Cells % 0.1 % (0-0); Platelets 307 thou/uL (152-406)
[2023-05-03 03:04] LABS: Anion Gap 10.9 mEq/L (5.0-15.0); Potassium 3.9 mEq/L (3.5-5.1)
[2023-05-03 03:07] LABS: Magnesium 1.8 mg/dL (1.6-2.4)
[2023-05-03] MEDS: MORPHINE 2 MG/ML SYR IV ONE (05:28)
--- NOTE | 2023-05-03 06:35 | P.PN ---
Subjective Date of Service: 05/03/23 Chief Complaint: HHNK admitted for hyperglycemia, pneumonia, to ICU on insulin drip,plan to transition to floor, transiton for ACHS BG, high SSI no reported fever overnight, more alert today - Physical Exam General: Alert, In no apparent distress, Confused HEENT: Atraumatic, Normocephalic Neck: Supple, JVD not distended Respiratory: Expiratory wheezes, Inspiratory wheezes Cardiovascular: No edema, Normal pulses, Regular rate/rhythm Gastrointestinal: Normal bowel sounds, Other, Hyperactive Musculoskeletal: No clubbing (Nausea vomiting diarrhea), No swelling Integumentary: No rashes, No significant lesion Neurological: Other (alert and oriented x 3) <Bernie Sepulveda - Last Filed: 05/03/23 13:06> Date of Service: 05/03/23 <Markos Lanza - Last Filed: 05/03/23 17:32> Review of Systems per HPI <Bernie Sepulveda - Last Filed: 05/03/23 13:06> Physical Examination - Vital Signs Temperature: 97.4 F Blood Pressure: 115/89 Pulse: 108 Respirations: 19 Pulse Ox (%): 94 - Studies Laboratory Data (last 24 hrs) 05/02/23 05/02/23 05/02/23 12:20 12:20 12:20 WBC 8.40 Hgb 13.6 Hct 42.6 Plt Count 337 PT 11.1 INR 1.01 APTT 30.8 Sodium 125 L Potassium 4.5 BUN 34 H Creatinine 1.07 Glucose 1013 H* Total Bilirubin 0.7 AST 14 L ALT 27 Alkaline Phosphatase 354 H Microbiology Data (last 24 hrs): 05/02/23 12:20 Nasopharnyx Influenza Type A Antigen Screen - Final 05/02/23 12:20 Nasopharnyx Influenza Type B Antigen Screen - Final <Bernie Sepulveda - Last Filed: 05/03/23 13:06> - Studies Microbiology Data (last 24 hrs): 05/02/23 12:20 Nasopharnyx Influenza Type A Antigen Screen - Final 05/02/23 12:20 Nasopharnyx Influenza Type B Antigen Screen - Final <Markos Lanza - Last Filed: 05/03/23 17:32> Assessment And Plan - Plan Assessment plan HHNK Diabetes with hyperglycemia blood glucose greater than 1000 Lack of insurance Medication noncompliance Admit to ICU, insulin drip, presents to the ER via EMS for shortness of breath. He reports associated left- sided chest pain, productive cough, nausea vomiting diarrhea. He reports symptoms started 4 to 5 days ago is progressively getting worse. BP 138 / 106; Pulse 116; Resp 19; Temp 97.8; Pulse Ox 99% on R/A; Weight 79.38 kg; Height 5 ft. 8 in Plan to admit for HHNK, pneumonia, dehydration, laboratory evaluation blood glucose greater than 1000, pseudohyponatremia, elevated BNP 712, early left shift 73.8, chest x-ray IMPRESSION: Suspected left mid lung pneumonia. Follow-up imaging after appropriate treatment to ensure clearance is recommended., CT of the abdomen pelvis IMPRESSION: No acute intra-abdominal or pelvic finding. Mild fecal retention. Mild fatty liver. 05/02 Gap closed, plan to transfer to floor today, start long-acting insulin SS consult for lack of insurance UA 4+ glucosuria Acute hypoxic respiratory failure secondary to pneumonia History of COPD Former smoker IV Levaquin, IV cefepime Nebs, steroids, Pulmonary consult Fatty liver Hypertensive disorder neuropathy PT eval for falls Full code Diet diabetic diet DVT Lovenox Disposition Home Discharge Plan: Home Critical Care: Yes Time Spent Managing PTS Care (In Minutes): 55 <Bernie Sepulveda - Last Filed: 05/03/23 13:06> - Plan Pt seen and examined. I agree with the note by the MANAGER CLINICAL RESEARCH. Will control blood sugar. Continue iv abx for pneumonia and COPD. <Markos Lanza - Last Filed: 05/03/23 17:32>
[2023-05-03] MEDS ORDERED: LEVALBUTEROL 1.25 MG/3 ML NEB NEB PRN (06:45)
[2023-05-03] MEDS ORDERED: KETOROLAC 30 MG/ML INJ ONE ×2 (07:23→20:00)
[2023-05-03] MEDS ORDERED: ENOXAPARIN 40 MG/0.4 ML SQ ONE (07:23)
[2023-05-03] MEDS ORDERED: INSULIN REGULAR (HUMAN) 100 UNIT/ML ONE ×3 (07:25→16:28)
[2023-05-03] MEDS: INSULIN GLARGINE 100 UNIT/ML SQ ONE (07:43)
[2023-05-03] MEDS: KETOROLAC 30 MG/ML INJ IV PRN (07:43)
[2023-05-03] MEDS ORDERED: predniSONE 20 MG TAB PO SCH (09:00)
[2023-05-03] MEDS ORDERED: PROMETH/COD 6.25/10MG SYRUP 5ML ONE ×2 (10:15→16:28)
[2023-05-03] MEDS ORDERED: ONDANSETRON 4 MG/2 ML VIAL ONE ×2 (10:15→16:28)
[2023-05-03] MEDS: PROMETH/COD 6.25/10MG SYRUP 5ML PO PRN (10:16)
[2023-05-03 11:34] LABS: Anion Gap 11.3 mEq/L (5.0-15.0); Potassium 4.3 mEq/L (3.5-5.1)
[2023-05-03] MEDS: INSULIN REGULAR (HUMAN) 100 UNIT/ML SQ SCH (12:44)
[2023-05-03] MEDS ORDERED: Levofloxacin 750mg IV 750 MG/150 ML BAG IV ONE (15:06)
[2023-05-03] MEDS ORDERED: INSULIN LISPRO 100 UNIT/ML ONE (16:44)
[2023-05-03] MEDS: INSULIN LISPRO 100 UNIT/ML SQ SCH (16:46)
[2023-05-03 16:59] LABS: Anion Gap 11.2 mEq/L (5.0-15.0); Potassium 4.2 mEq/L (3.5-5.1)
[2023-05-03] MEDS ORDERED: INSULIN GLARGINE 100 UNIT/ML SQ ONE (20:01)
[2023-05-03] MEDS: INSULIN GLARGINE 100 UNIT/ML SQ SCH (20:04)
[2023-05-04 04:53] LABS: Absolute Eosinophils 0.1 K/uL (0-0.5); Absolute Lymphocytes (CBC) 1.9 K/uL (0.7-4.9); Absolute Monocytes 0.7 K/uL (0.1-1.3); Absolute Neutrophil 7.3 K/uL (1.8-8.0); Basophils % 0.3 % (0-1.3); Eosinophils % 0.9 % (0-4.4); Hematocrit 36.8 % (39.6-49.0); Hemoglobin 12.4 g/dL (13.6-17.9); Lymphocytes % 18.9 % (15.3-44.8); MCH 30.6 pg (27.0-35.0); MCHC 33.8 g/dL (32.0-36.0); MCV 90.4 fL (80-100); MPV 7.7 fL (7.6-11.3); Monocytes % 6.8 % (3.3-12.3); Neutrophils % 73.1 % (41.7-73.7); Nucleated Red Blood Cells % 0.1 % (0-0); Platelets 279 thou/uL (152-406); RBC Red Blood Cell Count 4.07 M/uL (4.33-5.43); Red Cell Distribution Width 13.5 % (12.1-15.2)
[2023-05-04 05:27] LABS: Magnesium 1.8 mg/dL (1.6-2.4)
--- NOTE | 2023-05-04 08:11 | P.PN ---
Subjective Date of Service: 05/04/23 Chief Complaint: HHNK admitted for hyperglycemia, pneumonia, to ICU on insulin drip,plan to transition to floor, transiton for ACHS BG, high SSI Blood glucose" improved to 256, Semglee 25 twice daily added 05/02 with high sliding scale insulin On Levaquin for pneumonia, O2 sats 92% on room air no reported fever overnight, more alert today History of peripheral neuropathy PT eval ordered - Physical Exam General: Alert, In no apparent distress, Confused HEENT: Atraumatic, Normocephalic Neck: Supple, JVD not distended Respiratory: Expiratory wheezes, Inspiratory wheezes Cardiovascular: No edema, Normal pulses, Regular rate/rhythm Gastrointestinal: Normal bowel sounds, Other, Hyperactive Musculoskeletal: No clubbing (Nausea vomiting diarrhea), No swelling Integumentary: No rashes, No significant lesion Neurological: Other (alert and oriented x 3) Review of Systems per HPI Physical Examination - Vital Signs Temperature: 98.9 F Blood Pressure: 113/69 Pulse: 105 Respirations: 18 Pulse Ox (%): 92 Assessment And Plan - Plan Assessment plan HHNK improved Diabetes with hyperglycemia blood glucose greater than 1000 improved Lack of insurance Medication noncompliance Admit to ICU, insulin drip, presents to the ER via EMS for shortness of breath. He reports associated left- sided chest pain, productive cough, nausea vomiting diarrhea. He reports symptoms started 4 to 5 days ago is progressively getting worse. BP 138 / 106; Pulse 116; Resp 19; Temp 97.8; Pulse Ox 99% on R/A; Weight 79.38 kg; Height 5 ft. 8 in Plan to admit for HHNK, pneumonia, dehydration, laboratory evaluation blood glucose greater than 1000, pseudohyponatremia, elevated BNP 712, early left shift 73.8, chest x-ray IMPRESSION: Suspected left mid lung pneumonia. Follow-up imaging after appropriate treatment to ensure clearance is recommended., CT of the abdomen pelvis IMPRESSION: No acute intra-abdominal or pelvic finding. Mild fecal retention. Mild fatty liver. 05/02 Gap closed, plan to transfer to floor today, start long-acting insulin Lantus 25 twice daily added with slight high sliding scale and SS consult for lack of insurance UA 4+ glucosuria 05/03 dietitian consult education on diabetic diet Acute hypoxic respiratory failure secondary to pneumonia improved History of COPD Former smoker IV Levaquin, Nebs, steroids held due to hyperglycemia Fatty liver Hypertensive disorder neuropathy Bilateral lower extremity weakness History of falls 05/02 PT eval for falls min assist for transfers, knee анна, max assist to regain balance Hypocalcemia Replace daily as needed Full code Diet diabetic diet DVT Lovenox Disposition Home Discharge Plan: Home - Code Status/Comfort Care Code Status: Full Code Critical Care: No Time Spent Managing PTS Care (In Minutes): 35
[2023-05-04] MEDS: MAGNESIUM SULFATE 1 gm IVPB 1 GM/100 ML BAG IV ONE (08:49)
[2023-05-04] MEDS ORDERED: INSULIN GLARGINE 100 UNIT/ML SQ SCH (09:00)
--- NOTE | 2023-05-04 09:57 | P.CNS ---
Date of Consult: 05/04/23 Reason for Consult: Pneumonia Chief Complaint: Hyperosmolar hyperglycemia and penumonia History of Present Illness: Pt is 63 yrs AW severe hyperglycemia and left sided pneumonia. Non compliant with diabetic meds. Associated weight loss and polydipsia/ C/o severe left sided pleuritic pain / pordiuctive cough Allergies No Known Allergies Allergy (Unverified 05/02/23 15:54) Home Medications: NK [No Home Meds] 05/02/23 - Past Medical/Surgical History Diabetic: Yes -: Diabetes -: HTN -: Neuropathy BLE -: [place] - Family History Mother Medical History: Hypertension Dad Medical History: Cancer Notes: Lung Cancer - Social History Alcohol use: No CD- Drugs: No Caffeine use: Yes Place of Residence: Home Review of Systems 10-point ROS is otherwise unremarkable General: Weakness Respiratory: Cough, Shortness of Breath, Pleuritic Pain Physical Examination Temp Pulse Resp BP Pulse Ox 98.9 F 105 H 18 113/69 92 05/04/23 08:13 05/04/23 08:13 05/04/23 08:13 05/04/23 08:13 05/04/23 08:13 General: Alert, Oriented x3 HEENT: Atraumatic Neck: Supple Respiratory: Clear to auscultation bilaterally Cardiovascular: No edema, Regular rate/rhythm, Normal S1 S2 Gastrointestinal: Normal bowel sounds, Soft and benign - Problems (1) Pneumonia Current Visit: Yes Status: Acute Plan: Pt is 63 yrs of age AW HHS sever hyperglycemia. non compliance with meds and left sided penumonia with pleuritc chest pain/ Doing bettter. Add metformin and change to PO [facility]quin[facility] Cough supression Qualifiers: Pneumonia type: due to unspecified organism Laterality: left
[2023-05-04] MEDS ORDERED: PROMETHAZINE-DM 5 ML OSYR PO PRN (09:59)
[2023-05-04] MEDS: INSULIN LISPRO 100 UNIT/ML ONE (12:22)
[2023-05-04] MEDS: METFORMIN HCL 500 MG TAB PO SCH (12:30)
--- NOTE | 2023-05-04 14:46 | P.DS ---
Admission Date: 05/02/23 Discharge Date: 05/04/23 Disposition: ROUTINE DISCHARGE Discharge Condition: GOOD Reason for Admission: Hyperosmolar hyperglycemia and penumonia Brief History of Present Illness: 63 year old male with past medical history of diabetes mellitus; Hypertensive disorder; neuropathy presents to the ER via EMS for shortness of breath. He reports associated left-sided chest pain, productive cough, nausea vomiting diarrhea. He reports symptoms started 4 to 5 days ago is progressively getting worse. No reported fever, edema, dizziness. 7 BP 138 / 106; Pulse 116; Resp 19; Temp 97.8; Pulse Ox 99% on R/A; Weight 79.38 kg; Height 5 ft. 8 in Plan to admit for HHNK, pneumonia, dehydration, laboratory evaluation blood glucose greater than 1000, pseudohyponatremia, elevated BNP 712, early left shift 73.8, chest x- ray IMPRESSION: Suspected left mid lung pneumonia. Follow-up imaging after appropriate treatment to ensure clearance is recommended., CT of the abdomen pelvis IMPRESSION: No acute intra-abdominal or pelvic finding. Mild fecal retention. Mild fatty liver. Hospital Course: 63 year-old male patient presented with hyperglycemia, cough. Was noted to have pneumonia, uncontrolled hyperglycemia. Condition improved with IV insulin, IV antibiotics. Patient tolerating diet, stable for discharge to home with follow- up appointment with primary care physician, follow-up with pulmonary after discharge PROBLEM: Pneumonia Uncontrolled diabetes with hyperglycemia Peripheral neuropathy History of fall Rolling walker given prior to discharge List of clinics for individuals with no insurance provided to patient Follow-up with pulmonary after discharge for pneumonia Follow-up with primary care in 1 week with blood glucose log Continue home medicines as previously prescribed Prescription for Levaquin, 70/30 insulin, albuterol inhaler for wheezing GOAL: Clear understanding of disease process INSTRUCTIONS: Physician Discharge Instructions: -Follow-up with PCP in 1 to 2 weeks -Please call if any questions regarding hospital stay -Please call nursing station at [phone] if any nursing or medication questions -Return to the emergency room if symptoms worsen Diet: ADA, low sodium Activity: Fall precautions Vital Signs/Physical Exam: Temp Pulse Resp BP Pulse Ox 98.9 F 105 H 18 113/69 92 05/04/23 08:13 05/04/23 08:13 05/04/23 08:13 05/04/23 08:13 05/04/23 08:13 Laboratory Data at Discharge: WBC 10.00 thou/uL (4.3-10.9) 05/04/23 03:49 Hgb 12.4 g/dL (13.6-17.9) L 05/04/23 03:49 Hct 36.8 % (39.6-49.0) L 05/04/23 03:49 Plt Count 279 thou/uL (152-406) 05/04/23 03:49 PT 11.1 SECONDS (9.5-12.5) 05/02/23 12:20 INR 1.01 05/02/23 12:20 APTT 30.8 SECONDS (24.3-36.9) 05/02/23 12:20 Sodium 131 mEq/L (136-145) L 05/04/23 03:49 Potassium 4.0 mEq/L (3.5-5.1) 05/04/23 03:49 BUN 24 mg/dL (7-18) H 05/04/23 03:49 Creatinine 0.66 mg/dL (0.70-1.30) L 05/04/23 03:49 Glucose 231 mg/dL (74-106) H 05/04/23 03:49 Magnesium 1.8 mg/dL (1.6-2.4) 05/04/23 03:49 Total Bilirubin 0.7 mg/dL (0.2-1.0) 05/02/23 12:20 AST 14 U/L (15-37) L 05/02/23 12:20 ALT 27 U/L (16-61) 05/02/23 12:20 Alkaline Phosphatase 354 U/L (45-117) H 05/02/23 12:20 Triglycerides 251 mg/dL (<150) H 05/03/23 02:38 Cholesterol 195 mg/dL (<200) 05/03/23 02:38 HDL Cholesterol 38 mg/dL (40-60) L 05/03/23 02:38 Cholesterol/HDL Ratio 5.13 05/03/23 02:38 Home Medications: Albuterol Sulfate [Albuterol Sulfate Hfa] 8.5 gm IH Q4H PRN 30 Days #1 inh 05/04/23 Insulin 70/30 NPH/Reg Human [Novolin 70/30*] 30 unit SQ BID 30 Days #15 ml 05/04/23 levoFLOXacin [Levaquin*] 750 mg PO DAILY 7 Days #7 tab 05/04/23 New Medications: Albuterol Sulfate [Albuterol Sulfate Hfa] 8.5 gm IH Q4H PRN 30 Days #1 inh PRN Reason: Shortness Of Breath levoFLOXacin [Levaquin*] 750 mg PO DAILY 7 Days #7 tab Insulin 70/30 NPH/Reg Human [Novolin 70/30*] 30 unit SQ BID 30 Days #15 ml Physician Discharge Instructions: 63 year-old male patient presented with hyperglycemia, cough. Was noted to have pneumonia, uncontrolled hyperglycemia. Condition improved with IV insulin, IV antibiotics. Patient tolerating diet, stable for discharge to home with follow- up appointment with primary care physician, follow-up with pulmonary after discharge PROBLEM: Pneumonia Uncontrolled diabetes with hyperglycemia Peripheral neuropathy, follow Rolling walker given prior to discharge List of clinics for individuals with no insurance provided to patient Follow-up with pulmonary after discharge for pneumonia Follow-up with primary care in 1 week with blood glucose log Continue home medicines as previously prescribed GOAL: Clear understanding of disease process Take insulin 70/30 30u subq BID and levaquin 750mg po daily for 1 week, albuterol inhaler for shortness of breath or wheeze Continue home meds. Follow up with PCP within 1 week INSTRUCTIONS: Physician Discharge Instructions: -DC IV and DC home -Follow-up with PCP in 1 to 2 weeks -Please call if any questions regarding hospital stay -Please call nursing station at [phone] if any nursing or medication questions -Return to the emergency room if symptoms worsen Diet: ADA, low sodium Activity: Fall precautions Continue ad lacey activity. Diet: AHA Activity: Ad lacey Followup: Darian Tse MD [ACTIVE - CAN ADMIT] - NONE,NONE [Primary Care Provider] - Time spent managing pt's care (in minutes): 55
--- NOTE | 2023-05-04 14:58 | RAD REPORT ---
EXAM DESCRIPTION: RAD - Chest Pa And Lat (2 Views) - 05/04/2023 2:45 pm CLINICAL HISTORY: pneumonia Chest pain. COMPARISON: Chest Single View dated 05/02/2023; Chest Single View dated 05/02/2023 FINDINGS: Moderate area of lung consolidation in the left mid and lower lung has moderately worsened since prior study. The right lung is grossly clear. The heart is normal in size. No displaced fractu res. IMPRESSION: Moderate worsening of left-sided infiltrate/pneumonia pattern.
--- NOTE | 2023-05-04 16:05 | P.PN ---
Subjective Date of Service: 05/04/23 Chief Complaint: Hyperosmolar hyperglycemia and penumonia reports generalized weakness, plan to order RW prior to DC Physical Exam General: Alert, In no apparent distress, Confused HEENT: Atraumatic, Normocephalic Neck: Supple, JVD not distended Respiratory: Expiratory wheezes, Inspiratory wheezes Cardiovascular: No edema, Normal pulses, Regular rate/rhythm Gastrointestinal: Normal bowel sounds, Other, Hyperactive Musculoskeletal: No clubbing (Nausea vomiting diarrhea), No swelling Integumentary: No rashes, No significant lesion Neurological: Other (alert and oriented x 3) <Bernie Sepulveda - Last Filed: 05/04/23 16:03> Date of Service: 05/04/23 <Markos Lanza - Last Filed: 05/04/23 17:01> Review of Systems per HPI <Bernie Sepulveda - Last Filed: 05/04/23 16:03> Physical Examination - Vital Signs Temperature: 97.9 F Blood Pressure: 135/84 Pulse: 110 Respirations: 16 Pulse Ox (%): 93 <Bernie Sepulveda - Last Filed: 05/04/23 16:03> Assessment And Plan - Plan - Plan Assessment plan HHNK Diabetes with hyperglycemia blood glucose greater than 1000 Lack of health insurance Medication noncompliance Admit to ICU, insulin drip, presents to the ER via EMS for shortness of breath. He reports associated left- sided chest pain, productive cough, nausea vomiting diarrhea. He reports symptoms started 4 to 5 days ago is progressively getting worse. BP 138 / 106; Pulse 116; Resp 19; Temp 97.8; Pulse Ox 99% on R/A; Weight 79.38 kg; Height 5 ft. 8 in Plan to admit for HHNK, pneumonia, dehydration, laboratory evaluation blood glucose greater than 1000, pseudohyponatremia, elevated BNP 712, early left shift 73.8, chest x-ray IMPRESSION: Suspected left mid lung pneumonia. Follow-up imaging after appropriate treatment to ensure clearance is recommended., CT of the abdomen pelvis IMPRESSION: No acute intra-abdominal or pelvic finding. Mild fecal retention. Mild fatty liver. 05/02 Gap closed, plan to transfer to floor today, start long-acting insulin SS consult for lack of insurance UA 4+ glucosuria Acute hypoxic respiratory failure secondary to pneumonia History of COPD Former smoker IV Levaquin, IV cefepime Nebs, steroids, Pulmonary consult Fatty liver Hypertensive disorder neuropathy PT eval for falls Full code Diet diabetic diet DVT Lovenox Disposition Home Discharge Plan: Home Critical Care: Yes Time Spent Managing PTS Care (In Minutes): 35 > Discharge Plan: Home - Code Status/Comfort Care Code Status: Full Code Critical Care: No Time Spent Managing PTS Care (In Minutes): 35 <Bernie Sepulveda - Last Filed: 05/04/23 16:03> - Plan Pt seen and examined. I agree with the note by the CNC LATHE MACHINE OPERATOR. Blood sugar has improved. Pt was advised follow up at clinic where he can get free medical care. Pt will need insulin 70/30 upon dc due to high A1c (>14) <Markos Lanza - Last Filed: 05/04/23 17:01>
[2023-05-05] MEDS: HYDROCODONE/APAP 5/325 MG TAB PO PRN (03:15)
[2023-05-05 06:47] LABS: Absolute Eosinophils 0.1 K/uL (0-0.5); Absolute Lymphocytes (CBC) 1.4 K/uL (0.7-4.9); Absolute Monocytes 0.8 K/uL (0.1-1.3); Absolute Neutrophil 8.2 K/uL (1.8-8.0); Basophils % 0.4 % (0-1.3); Eosinophils % 0.5 % (0-4.4); Hematocrit 35.2 % (39.6-49.0); Hemoglobin 12.1 g/dL (13.6-17.9); Lymphocytes % 13.7 % (15.3-44.8); MCH 30.7 pg (27.0-35.0); MCHC 34.4 g/dL (32.0-36.0); MCV 89.4 fL (80-100); MPV 7.4 fL (7.6-11.3); Monocytes % 7.2 % (3.3-12.3); Neutrophils % 78.2 % (41.7-73.7); Platelets 299 thou/uL (152-406); RBC Red Blood Cell Count 3.94 M/uL (4.33-5.43); Red Cell Distribution Width 13.1 % (12.1-15.2)
[2023-05-05 07:00] LABS: Anion Gap 6.7 mEq/L (5.0-15.0); Magnesium 2.1 mg/dL (1.6-2.4); Potassium 3.7 mEq/L (3.5-5.1)
[2023-05-05] MEDS: POTASSIUM CL SA 10 MEQ TAB PO ONE (08:21)
[2023-05-05] MEDS: levoFLOXacin 250 MG TAB PO SCH (08:21)
[2023-05-05] MEDS: ACETAMINOPHEN 500 MG TAB PO PRN (08:22)
[2023-05-05 10:29] VITALS: O2SAT 92
[2023-05-05 12:22] VITALS: BP 128/86; TEMP 97.3
--- NOTE | 2023-05-05 14:22 | EKG ---
Test Date: 2023-05-03 Test Time: 01:42:29 Bowling Pin Refinisher: ALESSIA MEASUREMENT RESULTS: Intervals: Rate: 108 MA: 118 QRSD: 70 QT: 350 QTc: 469 [place]: P: 53 MA: 118 QRS: 76 T: 50 INTERPRETIVE STATEMENTS: Sinus tachycardia Otherwise normal ECG Compared to ECG 05/02/2023 11:35:39 Right-axis deviation no longer present Electronically Signed On 05-05-23 14:15:23 CDT by Obey Leger
--- NOTE | 2023-05-05 14:22 | EKG ---
Test Date: 2023-05-03 Test Time: 01:44:31 Technology Manager: ALESSIA MEASUREMENT RESULTS: Intervals: Rate: 107 IL: 116 QRSD: 74 QT: 354 QTc: 472 [place]: P: 66 IL: 116 QRS: 75 T: 52 INTERPRETIVE STATEMENTS: Sinus tachycardia Otherwise normal ECG Compared to ECG 05/03/2023 01:42:29 No significant changes Electronically Signed On 05-05-23 14:15:21 CDT by Obey Leger
--- NOTE | 2023-05-05 14:27 | EKG ---
Test Date: 2023-05-02 Test Time: 11:35:39 Edge Runner: BCW MEASUREMENT RESULTS: Intervals: Rate: 114 AK: 122 QRSD: 78 QT: 344 QTc: 474 [place]: P: 82 AK: 122 QRS: 91 T: 26 INTERPRETIVE STATEMENTS: Sinus tachycardia Rightward axis Borderline ECG No previous ECG available for comparison Electronically Signed On 05-05-23 14:16:52 CDT by Obey Leger
[2023-05-06] MEDS ORDERED: levoFLOXacin 750 MG TAB PO SCH (09:00)
== END 2023-05-05 12:36 | disposition home or self-care (01) | DRG 637 ==
LOC: ER 11:29 → ERHOLD 13:57 → 3RD-ICU 15:43 → 4TH 05-03 22:17
PROVIDERS: ADMIT Hospitalist; ATTEND Hospitalist
DX: E11.00 Type 2 diabetes mellitus with hyperosmolarity without nonketotic hyperglycemic-hyperosmolar coma (NKHHC) (principal); J18.9 Pneumonia, unspecified organism; J96.01 Acute respiratory failure with hypoxia; J44.0 Chronic obstructive pulmonary disease with (acute) lower respiratory infection; I10 Essential (primary) hypertension; E11.42 Type 2 diabetes mellitus with diabetic polyneuropathy; E86.0 Dehydration; K76.0 Fatty (change of) liver, not elsewhere classified; Z79.4 Long term (current) use of insulin; Z91.81 History of falling; Z11.52 Encounter for screening for COVID-19; Z87.891 Personal history of nicotine dependence; Z91.148 Patient's other noncompliance with medication regimen for other reason; Z79.899 Other long term (current) drug therapy
CPT/HCPCS: 36415; 71045; 71046; 74177; 80048; 80053; 80061; 81001; 82947; 83036; 83605; 83735; 83880; 84484; 85025; 85610; 85730; 87040; 87804; 87811; 93005; 94640; 96361; 96365; 96366; 96368; 96372; 96375; 97116; 97163; 97530; 99285; J0696; J1650; J1815; J2270; J2405; J3475; J7030; J7050; J7605; Q9967

== ENCOUNTER 2023-08-14 09:40 | Emergency (ER) | payer MEDICAID, SELFPAY ==
[2023-08-14 10:34] LABS: Absolute Basophils 0.1 K/uL (0-0.5); Absolute Eosinophils 0.7 K/uL (0-0.5); Absolute Lymphocytes (CBC) 2.2 K/uL (0.7-4.9); Absolute Monocytes 0.5 K/uL (0.1-1.3); Absolute Neutrophil 2.5 K/uL (1.8-8.0); Basophils % 2.5 % (0-1.3); Eosinophils % 11.2 % (0-4.4); Hematocrit 38.3 % (39.6-49.0); Hemoglobin 12.8 g/dL (13.6-17.9); Lymphocytes % 36.6 % (15.3-44.8); MCH 29.3 pg (27.0-35.0); MCHC 33.4 g/dL (32.0-36.0); MCV 87.9 fL (80-100); MPV 7.1 fL (7.6-11.3); Monocytes % 8.3 % (3.3-12.3); Neutrophils % 41.4 % (41.7-73.7); Nucleated Red Blood Cells % 0.4 % (0-0); Platelets 294 thou/uL (152-406); RBC Red Blood Cell Count 4.35 M/uL (4.33-5.43); Red Cell Distribution Width 14.4 % (12.1-15.2)
[2023-08-14 10:41] LABS: PT Prothrombin Time 10.3 SECONDS (9.4-12.5); Protime INR 0.93
[2023-08-14] MEDS ORDERED: ONDANSETRON 4 MG/2 ML VIAL ONE (10:44)
[2023-08-14] MEDS ORDERED: KETOROLAC 30 MG/ML INJ ONE (10:45)
[2023-08-14] MEDS ORDERED: dexAMETHasone 10 MG/ML VIAL ONE (10:45)
[2023-08-14] MEDS ORDERED: MORPHINE 4 MG/ML SYR ONE (10:45)
[2023-08-14] MEDS ORDERED: NA CHLORIDE 0.9% 1,000 ML ONE (10:46)
[2023-08-14] MEDS ORDERED: DIAZEPAM 5 MG TABLET ONE (10:46)
--- NOTE | 2023-08-14 10:50 | RAD REPORT ---
EXAM DESCRIPTION: RAD - Tib Fib Right - 08/14/2023 10:43 am CLINICAL HISTORY: PAIN COMPARISON: No comparisons FINDINGS/IMPRESSION: No acute fracture. No malalignment. No significant focal degenerative changes.
--- NOTE | 2023-08-14 10:50 | RAD REPORT ---
EXAM DESCRIPTION: CT - Head C Spine Cap Wo Con - 08/14/2023 10:29 am CLINICAL HISTORY: Trauma, head and neck injury. Chest, abdomen and pelvis pain. TRAUMA COMPARISON: Abdomen Pelvis W Contrast dated 05/02/2023 TECHNIQUE: CT head without contrast. CT cervical spine without contrast with coronal and sagittal reformatted images. CT chest, abdomen and pelvis with coronal and sagittal reformatted images of the spine. All CT scans are performed using dose optimization technique as appropriate and may include automated exposure control or mA/KV adjustment according to patient size. FINDINGS: CT HEAD WITHOUT CONTRAST: No intracranial hemorrhage, hydrocephalus or extra-axial fluid collection. No acute large vascular te rritory infarct. The paranasal sinuses and mastoids are clear. The calvarium is intact. CT CERVICAL SPINE WITHOUT CONTRAST: No fracture or subluxation. The prevertebral soft tissues are normal in thickness.Multilevel degenerative changes are present in the spine. Varying degrees of neural foraminal narrowing. No high-grade central spinal stenosis. Trac e anterolisthesis C4 on C5 and retrolisthesis C5 on C6. CT CHEST, ABDOMEN, PELVIS: Thorax: Chest Wall: No abnormal mass Lungs: Linear scarring in the lingula. Scattered tiny pulmonary nodules are noted which are likely be nign do not require follow-up. Pleura: No effusions or pneumothorax. [place]/Mediastinum: No lymphadenopathy. Circumferentially thickened esophagus likely reflecting esophag itis. Aorta/Pulmonary Arteries: Unremarkable Heart: Normal size. A few coronary artery calcifications are noted in the LAD. Abdomen/Pelvis: Liver: No acute abnormality or suspicious lesions. Biliary: No biliary ductal dilatation. Stomach: No significant focal abnormality. Duodenum: No significant focal abnormality. Pancreas: Atrophic pancreas. Spleen: No significant abnormality. Adrenal: Adrenal thickening without discrete mass. Kidney/ureter: No hydronephrosis. No renal calculi. Retroperitoneum: No retroperitoneal adenopathy. Vascular: No aneurysm. Atherosclerosis. Bowel: Moderate stool. No bowel obstruction.. No appendicitis. Peritoneum: No ascites or free air. Bladder: Grossly unremarkable. Reproductive: No adnexal masses. Bones: No acute fracture. Mild broad-based disc bulge at L4-5 and L5-S1. No high-grade central spinal stenosis identified. Other: n/a IMPRESSION: 1. No acute intracranial abnormality. 2. No acute fracture traumatic malalignment cervical spine. 3. No acute findings within the chest, abdomen, or pelvis.
--- NOTE | 2023-08-14 10:51 | RAD REPORT ---
EXAM DESCRIPTION: RAD - Chest Single View - 08/14/2023 10:43 am CLINICAL HISTORY: PAIN COMPARISON: Chest Pa And Lat (2 Views) dated 05/04/2023; Chest Single View dated 05/02/2023; Chest Sin gle View dated 05/02/2023 FINDINGS: Lines: None. Lungs: No evidence of edema or pneumonia. Pleural: No significant pleural effusions or pneumothorax. Cardiac: The heart size is within normal limits. Mediastinum: Within normal limits. Bones: No acute fractures. Other: None IMPRESSION: No acute cardiopulmonary disease.
[2023-08-14 10:56] LABS: ALT/SGPT 23 U/L (16-61); Albumin 3.1 g/dL (3.4-5.0); Alkaline Phosphatase 130 U/L (45-117); Anion Gap 9.1 mEq/L (5.0-15.0); BUN Blood Urea Nitrogen 24 mg/dL (7-18); Bicarbonate 29 mEq/L (21-32); Bilirubin Direct 0.2 mg/dL (0-0.2); Bilirubin Indirect, Calculated 0.6 mg/dL (0.2-0.8); Bilirubin Total 0.8 mg/dL (0.2-1.0); Globulin 3.1 g/dL (2.3-3.5); Glomerular Filtration Rate 71 ml/min (=/>90); NT PRO-BNP 271 pg/mL (<125); Potassium 4.1 mEq/L (3.5-5.1); Protein, Total 6.2 g/dL (6.4-8.2); Sodium Level 132 mEq/L (136-145); Troponin High Sensitivity 8.7 pg/mL (<58.9)
[2023-08-14 11:05] LABS: AST/SGOT < 10 U/L (15-37)
[2023-08-14 11:07] LABS: Glucose Level 564 mg/dL (74-106)
--- NOTE | 2023-08-14 11:25 | ER ---
Nurse's Notes [facility] Name: Blas Sanchez Age: 63 yrs Sex: Male : 1960 Arrival Date: 08/14/2023 Time: 09:40 Bed 19 Private MD: Diagnosis: Type 2 diabetes mellitus with hyperglycemia-uncontrolled;Fall (on) (from) other stairs and steps;Type 2 diabetes mellitus with diabetic neuropathy, unspecified-sever;Essential (primary) hypertension Presentation: 08/13 09:52 Chief complaint: Patient states: B leg pains/weakness worse than usual this week. ll1 Coronavirus screen: Client denies travel out of the [place] in the last 14 days. At this time, the client does not indicate any symptoms associated with coronavirus-19. Ebola Screen: Patient denies travel to an Ebola-affected area in the 21 days before illness onset. Initial Sepsis Screen: Does the patient meet any 2 criteria? No. Patient's initial sepsis screen is negative. Does the patient have a suspected source of infection? No. Patient's initial sepsis screen is negative. Risk Assessment: Do you want to hurt yourself or someone else? Patient reports no desire to harm self or others. Onset of symptoms was August 09, 2023. 09:52 Method Of Arrival: Wheelchair ll1 09:52 Acuity: LAVELL 3 ll1 Triage Assessment: 09:45 General: Appears in no apparent distress. uncomfortable, Behavior is cooperative, bp appropriate for age, anxious. Pain: Complains of pain in right leg and left leg. EENT: No deficits noted. Neuro: Level of Consciousness is awake, alert, obeys commands, Oriented to Appropriate for age. Cardiovascular: No deficits noted. Respiratory: No deficits noted. GI: No signs and/or symptoms were reported involving the gastrointestinal system. : No signs and/or symptoms were reported regarding the genitourinary system. Derm: No deficits noted. Musculoskeletal: No deficits noted. Historical: - Allergies: 09:44 No Known Allergies; ll1 - PMHx: 09:44 diabetes mellitus; Hypertensive disorder; neuropathy; ll1 - Immunization history:: Adult Immunizations up to date. - Infectious Disease History:: Denies. - Family history:: not pertinent. - Social history:: Smoking status: Patient/guardian denies using tobacco. Screenin:45 [facility] ED Fall Risk Assessment (Adult) History of falling in the last 3 months, bp including since admission Yes- single mechanical fall (1 pt) Confusion or Disorientation No (0 pts) Intoxicated or Sedated No (0 pts) Impaired Gait Yes (1 pt) Mobility Assist Device Used No (0 pt) Altered Elimination No (0 pt) Score/Fall Risk Level 0 - 2 = Low Risk Oriented to surroundings. Abuse screen: Denies threats or abuse. Denies injuries from another. Nutritional screening: No deficits noted. Tuberculosis screening: No symptoms or risk factors identified. Assessment: 09:45 General: SEE TRIAGE NTOE. bp 11:07 Reassessment: BGL >500, MD NOTIFIED. bp 12:10 Reassessment: DC ON HOLD FOR MD C/S. bp 12:47 Reassessment: DC ON HOLD FOR MED FROM PHARMACY. bp Vital Signs: 09:52 BP 205 / 127; Pulse 94; Resp 18; Temp 97.8; Pulse Ox 99% on R/A; Weight 72.57 kg; ll1 Height 5 ft. 8 in. ; Pain 8/10; 11:07 BP 179 / 116; Pulse 90; Resp 15; Pulse Ox 99% ; bp 12:09 BP 159 / 111; Pulse 70; Resp 16; Pulse Ox 97% ; bp 13:03 BP 167 / 99; Pulse 75; Resp 16; Temp 97.9; Pulse Ox 97% ; bp 09:52 Body Mass Index 24.33 (72.57 kg, 172.72 cm) ll1 09:52 Pain Scale: Adult ll1 ED Course: 09:43 Patient arrived in ED. ts1 09:43 Jourdan Carpenter MD is Attending Physician. vamshi 09:44 Arm band placed on Patient placed in an exam room, on a stretcher. ll1 09:45 Patient has correct armband on for positive identification. bp 09:49 Rony Herrera, BRANDON is Primary Nurse. bp 09:53 Triage completed. ll1 10:25 Inserted saline lock: 22 gauge in right forearm, using aseptic technique. Blood bp collected. 10:31 CT Traumagram (Head C Spine CAP wo con) In Process Unspecified. EDMS 10:44 XRAY Chest (1 view) In Process Unspecified. EDMS 10:44 Tib Fib Left XRAY In Process Unspecified. EDMS 10:44 Tib Fib Right XRAY In Process Unspecified. EDMS 11:06 Initial lab(s) drawn, by me, sent to lab. EKG done, by ED staff, reviewed by Jourdan Carpenter MD. 13:03 No provider procedures requiring assistance completed. IV discontinued, intact, bp bleeding controlled, No redness/swelling at site. Pressure dressing applied. Administered Medications: 10:30 Drug: NS 0.9% IV 1000 ml IV at 1 bolus Per protocol; 1000 mL bolus Route: IV; Rate: 1 bp bolus; Site: right forearm; 13:02 Follow up: IV Status: Completed infusion; IV Intake: 1000ml bp 10:30 Drug: Diazepam PO 10 mg PO once Route: PO; bp 12:45 Follow up: Response: No adverse reaction bp 10:30 Drug: Decadron - Dexamethasone IVP 10 mg IVP once Route: IVP; Site: right forearm; bp 13:02 Follow up: Response: No adverse reaction bp 10:30 Drug: Ketorolac IVP 15 mg IVP once Route: IVP; Site: right forearm; bp 13:02 Follow up: Response: No adverse reaction bp 10:30 Drug: morphine IVP or IV 2 mg IVP once over 4 mins Route: IVP; Infused Over: 4 mins; bp Site: right forearm; 13:02 Follow up: Response: No adverse reaction bp 10:30 Drug: morphine IVP or IV 2 mg IVP once over 4 mins Route: IVP; Infused Over: 4 mins; bp Site: right forearm; 12:47 Follow up: Response: No adverse reaction bp 10:30 Drug: Ondansetron IVP 4 mg IVP once; over 2 minutes Route: IVP; Site: right forearm; bp 12:44 Follow up: Response: No adverse reaction bp 11:45 Drug: Insulin Regular Human IVP 10 units IVP once {Co-Signature: ll1 (Jose Sweet RN).} Route: IVP; Site: right forearm; 12:44 Follow up: Response: No adverse reaction bp 11:45 Drug: Insulin Regular Human Sub-Q 10 units Sub-Q once {Co-Signature: ll1 (Jose Sweet RN).} Route: Sub-Q; Site: right upper arm; 12:45 Follow up: Response: No adverse reaction bp 11:45 Drug: Insulin Glargine Sub-Q 30 units Sub-Q once {Co-Signature: ll1 (Jose Sweet bp RN).} Route: Sub-Q; Site: right upper arm; 12:45 Follow up: Response: No adverse reaction bp 11:45 Drug: Lisinopril PO 20 mg PO once Route: PO; bp 12:45 Follow up: Response: No adverse reaction bp 11:45 Drug: Gabapentin PO 300 mg PO once Route: PO; bp 12:44 Follow up: Response: No adverse reaction bp 13:02 Drug: fentaNYL Transdermal Patch (50 mcg/hr) 1 patches Transdermal once Route: bp Transdermal; Site: affected area; Medication: 09:45 VIS not applicable for this client. bp Intake: 13:02 IV: 1000ml; Total: 1000ml. bp Outcome: 11:25 Discharge ordered by . vamshi 13:03 Discharged to home ambulatory, with family, bp 13:03 Condition: stable 13:03 Discharge instructions given to patient, family, Instructed on discharge instructions, follow up and referral plans. medication usage, Demonstrated understanding of instructions, follow-up care, medications, Prescriptions given X 4, 13:04 Patient left the ED. bp Signatures: Dispatcher [employer] EDMS Jourdan Carpenter MD MD cha Peltier, Brian RN RN bp Jose Sweet RN RN ll1 Mila Ambriz PAS PAS ts1 Jose Sweet RN ll1 Corrections: (The following items were deleted from the chart) 09:53 09:45 Social history: Smoking status: Patient denies any tobacco usage or history of. [id number]
--- NOTE | 2023-08-14 11:25 | EDPHYS ---
Physician Documentation [facility] Name: Blas Sanchez Age: 63 yrs Sex: Male : 1960 Arrival Date: 08/14/2023 Time: 09:40 Bed 19 Private MD: PRITI Physician Jourdan Carpenter HPI: 08/13 11:19 This 63 yrs old Male presents to ER via Wheelchair with complaints of Leg vamshi Pain, General Weakness. 11:19 The patient presents with an injury, pain. The complaints affect the right leg and left vamshi leg. Context: The problem was sustained at home. Onset: The symptoms/episode began/occurred just prior to arrival. Modifying factors: The symptoms are alleviated by remaining still, the symptoms are aggravated by movement, weight bearing. Associated signs and symptoms: The patient has no apparent associated signs or symptoms. Treatment prior to arrival includes: no previous treatment. The patient has experienced similar episodes in the past, multiple times. Historical: - Allergies: 09:44 No Known Allergies; ll1 - PMHx: 09:44 diabetes mellitus; Hypertensive disorder; neuropathy; ll1 - Immunization history:: Adult Immunizations up to date. - Infectious Disease History:: Denies. - Family history:: not pertinent. - Social history:: Smoking status: Patient/guardian denies using tobacco. ROS: 11:19 Constitutional: Negative for fever, chills, and weight loss, Eyes: Negative for injury, vamshi pain, redness, and discharge, ENT: Negative for injury, pain, and discharge, Neck: Negative for injury, pain, and swelling, Cardiovascular: Negative for chest pain, palpitations, and edema, Respiratory: Negative for shortness of breath, cough, wheezing, and pleuritic chest pain, Abdomen/GI: Negative for abdominal pain, nausea, vomiting, diarrhea, and constipation, Back: Negative for injury and pain, : Negative for injury, bleeding, discharge, and swelling, Skin: Negative for injury, rash, and discoloration, Neuro: Negative for headache, weakness, numbness, tingling, and seizure, Psych: Negative for depression, anxiety, suicide ideation, homicidal ideation, and hallucinations, Allergy/Immunology: Negative for hives, rash, and allergies, Endocrine: Negative for neck swelling, polydipsia, polyuria, polyphagia, and marked weight changes, Hematologic/Lymphatic: Negative for swollen nodes, abnormal bleeding, and unusual bruising, 11:19 MS/extremity: Positive for pain, tenderness, Exam: 11:19 Constitutional: This is a well developed, well nourished patient who is awake, alert, vamshi and in no acute distress. Head/Face: Normocephalic, atraumatic. Eyes: Pupils equal round and reactive to light, extra-ocular motions intact. Lids and lashes normal. Conjunctiva and sclera are non-icteric and not injected. Cornea within normal limits. Periorbital areas with no swelling, redness, or edema. ENT: Nares patent. No nasal discharge, no septal abnormalities noted. Tympanic membranes are normal and external auditory canals are clear. Oropharynx with no redness, swelling, or masses, exudates, or evidence of obstruction, uvula midline. Mucous membranes moist. Neck: Trachea midline, no thyromegaly or masses palpated, and no cervical lymphadenopathy. Supple, full range of motion without nuchal rigidity, or vertebral point tenderness. No Meningismus. Chest/axilla: Normal chest wall appearance and motion. Nontender with no deformity. No lesions are appreciated. Cardiovascular: Regular rate and rhythm with a normal S1 and S2. No gallops, murmurs, or rubs. Normal PMI, no JVD. No pulse deficits. Respiratory: Lungs have equal breath sounds bilaterally, clear to auscultation and percussion. No rales, rhonchi or wheezes noted. No increased work of breathing, no retractions or nasal flaring. Abdomen/GI: Soft, non-tender, with normal bowel sounds. No distension or tympany. No guarding or rebound. No evidence of tenderness throughout. Back: No spinal tenderness. No costovertebral tenderness. Full range of motion. Skin: Warm, dry with normal turgor. Normal color with no rashes, no lesions, and no evidence of cellulitis. Neuro: Awake and alert, GCS 15, oriented to person, place, time, and situation. Cranial nerves II-XII grossly intact. Motor strength 5/5 in all extremities. Sensory grossly intact. Cerebellar exam normal. Normal gait. Psych: Awake, alert, with orientation to person, place and time. Behavior, mood, and affect are within normal limits. 11:19 Musculoskeletal/extremity: ROM: intact in all extremities, full active range of motion, full passive range of motion, limited active range of motion due to pain, limited passive range of motion due to pain, Circulation is intact in all extremities. numbness, decreased sensation, Compartment Syndrome exam of affected extremity: is normal. Weight bearing: able to fully bear weight, without difficulty, DVT Exam: no swelling, negative Homans' sign noted on exam, no appreciated bluish discoloration, no erythema, no increased warmth, pain, tenderness, 11:31 ECG was reviewed by the Attending Physician. [facility] Vital Signs: 09:52 BP 205 / 127; Pulse 94; Resp 18; Temp 97.8; Pulse Ox 99% on R/A; Weight 72.57 kg; ll1 Height 5 ft. 8 in. ; Pain 8/10; 11:07 BP 179 / 116; Pulse 90; Resp 15; Pulse Ox 99% ; bp 12:09 BP 159 / 111; Pulse 70; Resp 16; Pulse Ox 97% ; bp 13:03 BP 167 / 99; Pulse 75; Resp 16; Temp 97.9; Pulse Ox 97% ; bp 09:52 Body Mass Index 24.33 (72.57 kg, 172.72 cm) ll1 09:52 Pain Scale: Adult ll1 MDM: 09:44 Patient medically screened. [facility] 11:21 Differential diagnosis: closed fracture, contusion, tendonitis. Data reviewed: vital [facility] signs, nurses notes, lab test result(s), EKG, radiologic studies, CT scan, plain films. Consideration of Admission/Observation Escalation of care including admission/observation considered. I considered the following discharge prescriptions or medication management in the emergency department Medications were administered in the Emergency Department. See MAR. Independent interpretation of the following test(s) in the Emergency Department EKG: See my EKG interpretation above. Test considered but Not performed: MRI: no mri. Historians other than the Patient: Family Member: family well informed. Care significantly affected by the following chronic conditions: Diabetes, Hypertension, neuropathy. 08/13 10:14 Order name: Basic Metabolic Panel; Complete Time: 11:12 [facility] 08/13 10:14 Order name: CBC with Diff; Complete Time: 11:12 [facility] 08/13 10:14 Order name: LFT's; Complete Time: 11:12 [facility] 08/13 10:14 Order name: Magnesium; Complete Time: 11:12 [facility] 08/13 10:14 Order name: NT PRO-BNP; Complete Time: 11:12 [facility] 08/13 10:14 Order name: PT-INR; Complete Time: 11:12 [facility] 08/13 10:14 Order name: Troponin HS; Complete Time: 11: [facility] 08/13 12:44 Order name: Glucose, Ancillary Testing EDMS 08/13 10:14 Order name: XRAY Chest (1 view); Complete Time: 11:12 [facility] 08/13 10:15 Order name: CT Traumagram (Head C Spine CAP wo con); Complete Time: 11: [facility] 08/13 10:18 Order name: Tib Fib Left XRAY; Complete Time: 11: [facility] 08/13 10:18 Order name: Tib Fib Right XRAY; Complete Time: 11: [facility] 08/13 10:14 Order name: EKG; Complete Time: 10:14 [facility] 08/13 10:14 Order name: Cardiac monitoring; Complete Time: : [facility] 08/13 10:14 Order name: EKG - Nurse/Tech; Complete Time: 11: [facility] 08/13 10:14 Order name: IV Saline Lock; Complete Time: : [facility] 08/13 10:14 Order name: Labs collected and sent; Complete Time: : [facility] 08/13 10:14 Order name: O2 Per Protocol; Complete Time: : [facility] 08/13 10:14 Order name: O2 Sat Monitoring; Complete Time: : [facility] EC:31 Rate is 73 beats/min. Rhythm is regular. QRS [place] is Normal. [place] interval is normal. QRS vamshi interval is normal. QT interval is normal. No Q waves. T waves are Normal. No ST changes noted. Clinical impression: Normal ECG and No evidence of ischemia. Interpreted by me. Reviewed by me. Administered Medications: 10:30 Drug: NS 0.9% IV 1000 ml IV at 1 bolus Per protocol; 1000 mL bolus Route: IV; Rate: 1 bp bolus; Site: right forearm; 13:02 Follow up: IV Status: Completed infusion; IV Intake: 1000ml bp 10:30 Drug: Diazepam PO 10 mg PO once Route: PO; bp 12:45 Follow up: Response: No adverse reaction bp 10:30 Drug: Decadron - Dexamethasone IVP 10 mg IVP once Route: IVP; Site: right forearm; bp 13:02 Follow up: Response: No adverse reaction bp 10:30 Drug: Ketorolac IVP 15 mg IVP once Route: IVP; Site: right forearm; bp 13:02 Follow up: Response: No adverse reaction bp 10:30 Drug: morphine IVP or IV 2 mg IVP once over 4 mins Route: IVP; Infused Over: 4 mins; bp Site: right forearm; 13:02 Follow up: Response: No adverse reaction bp 10:30 Drug: morphine IVP or IV 2 mg IVP once over 4 mins Route: IVP; Infused Over: 4 mins; bp Site: right forearm; 12:47 Follow up: Response: No adverse reaction bp 10:30 Drug: Ondansetron IVP 4 mg IVP once; over 2 minutes Route: IVP; Site: right forearm; bp 12:44 Follow up: Response: No adverse reaction bp 11:45 Drug: Insulin Regular Human IVP 10 units IVP once {Co-Signature: ll1 (Jose Sweet RN).} Route: IVP; Site: right forearm; 12:44 Follow up: Response: No adverse reaction bp 11:45 Drug: Insulin Regular Human Sub-Q 10 units Sub-Q once {Co-Signature: ll1 (Jsoe Sweet RN).} Route: Sub-Q; Site: right upper arm; 12:45 Follow up: Response: No adverse reaction bp 11:45 Drug: Insulin Glargine Sub-Q 30 units Sub-Q once {Co-Signature: ll1 (Jose Sweet RN).} Route: Sub-Q; Site: right upper arm; 12:45 Follow up: Response: No adverse reaction bp 11:45 Drug: Lisinopril PO 20 mg PO once Route: PO; bp 12:45 Follow up: Response: No adverse reaction bp 11:45 Drug: Gabapentin PO 300 mg PO once Route: PO; bp 12:44 Follow up: Response: No adverse reaction bp 13:02 Drug: fentaNYL Transdermal Patch (50 mcg/hr) 1 patches Transdermal once Route: Transdermal; Site: affected area; Disposition Summary: 08/14/23 11:25 Discharge Ordered Notes: Location: Home vamshi Problem: new vamshi Symptoms: have improved vamshi Condition: Fair vamshi Diagnosis - Fall (on) (from) other stairs and steps vamshi - Type 2 diabetes mellitus with diabetic neuropathy, unspecified - sever vamshi - Type 2 diabetes mellitus with hyperglycemia - uncontrolled(08/14/23 11:28) vamshi - Essential (primary) hypertension vamshi Followup: vamshi - With: Private Physician - When: 2 - 3 days - Reason: Recheck today's complaints, Continuance of care, Re-evaluation by your physician Discharge Instructions: - Discharge Summary Sheet vamshi - Hyperglycemia vamshi - Hypertension, Adult vamshi - Diabetic Nephropathy vamshi - Peripheral Neuropathy vamshi - Hypertension, Adult, [id number] vamshi - Diabetes Mellitus and Nutrition, Adult vamshi - How to Take Your Blood Pressure, Ypuu-[id number]-Ahun vamshi - Managing Your Hypertension vamshi Forms: - Medication Reconciliation Form vamshi - Antibiotic Education vamhsi - Prescription Opioid Use vamshi - Patient Portal Instructions [facility] - Leadership Thank You Letter [facility] Prescriptions: - acetaminophen-codeine 300-30 mg Oral tablet - take 2 tablet ORAL route every 6 hours as needed for pain; 20 tablet; Refills: vamshi 0, Product Selection Permitted - diclofenac sodium 25 mg Oral tablet, delayed release (enteric coated) - take 1 tablet ORAL route 3 times per day as needed for pain; 30 tablet; vamshi Refills: 0, Product Selection Permitted - gabapentin 300 mg Oral capsule - take 1 capsule ORAL route every 8 hours; 60 capsule; Refills: 0, Product vamshi Selection Permitted - Lisinopril 20 mg Oral Tablet - take 1 tablet ORAL route once daily; 20 tablet; Refills: 0, Product Selection vamshi Permitted Signatures: Dispatcher [employer] Jourdan Gifford MD MD cha Peltier, Brian RN BRANDON bp Jose Sweet RN RN ll1 Jose Sweet RN ll1 Corrections: (The following items were deleted from the chart) 09:53 09:45 Social history: Smoking status: Patient denies any tobacco usage or history of. [email or web address] 11:28 11:25 Type 2 diabetes mellitus with hyperglycemia [facility]
[2023-08-14] MEDS ORDERED: INSULIN GLARGINE 100 UNIT/ML SQ ONE (12:01)
[2023-08-14] MEDS ORDERED: lisinopriL 20 MG TAB ONE (12:01)
[2023-08-14] MEDS ORDERED: GABAPENTIN 300 MG CAP ONE (12:01)
[2023-08-14] MEDS ORDERED: INSULIN REGULAR (HUMAN) 100 UNIT/ML ONE (12:02)
[2023-08-14] MEDS ORDERED: FENTANYL 50 MCG/PATCH TD ONE (12:56)
[2023-08-14 13:20] VITALS: BP 167/99; TEMP 97.9; O2SAT 97
--- NOTE | 2023-08-15 11:13 | EKG ---
Test Date: 2023-08-14 Test Time: 11:01:58 Tenderizer Tender: BP MEASUREMENT RESULTS: Intervals: Rate: 73 CA: 118 QRSD: 86 QT: 404 QTc: 445 [place]: P: 31 CA: 118 QRS: 109 T: -2 INTERPRETIVE STATEMENTS: Normal sinus rhythm Normal ECG Compared to ECG 05/03/2023 01:44:31 Sinus tachycardia no longer present Electronically Signed On 08-15-23 11:11:58 CDT by Edgar Bonilla
== END 2023-08-14 13:04 | disposition home or self-care (01) ==
LOC: ER 09:40
DX: E11.65 Type 2 diabetes mellitus with hyperglycemia (principal); E11.40 Type 2 diabetes mellitus with diabetic neuropathy, unspecified; I10 Essential (primary) hypertension; W10.8XXA Fall (on) (from) other stairs and steps, initial encounter
CPT/HCPCS: 36415; 70450; 71045; 71250; 72125; 80048; 80076; 82947; 83735; 83880; 84484; 85025; 85610; 93005; 96361; 96372; 96374; 96375; 99284; J1100; J2405; J7030

== ENCOUNTER 2024-01-28 12:24 | Emergency (ER) | payer SELFPAY ==
--- OUTSIDE RECORDS SUMMARY | 2024-01-28 12:27 | XMS REPORT | Continuity of Care Document ---
Author Name Unknown Address [address] [facility] [address] [place] [address] [facility] [employer] Address [address] [facility] [address] [place] [address] Care Team Providers Care [employer] Carpenter Name Role Phone Chauncey GREENE, Jaki Primary Care Physician Medications Ordered Medication Name Filled Medication Name Start Date Stop Date Current Medication? Ordering Clinician Indication Dosage Frequency Signature (SIG) Comments Components Source Novolin 70/30 U-100 Insulin 100 unit/mL subcutaneou s suspension 2023-02 00:00: 00 Yes unit/mL (70-30) Jordan Roberto lisinopril 40 mg tablet 2023-02 00:00: 00 Yes 1mg Jordan Roberto ciprofloxac in 500 mg tablet 2023-02 00:00: 00 Yes 1mg Jordan Roberto metformin 1,000 mg tablet 2023-02 00:00: 00 Yes 1mg Jordan Roberto Bactrim DS 800 mg-160 mg tablet 2023-02 00:00: 00 Yes 1mg Jordan Roberto gabapentin 800 mg tablet 2023-02 00:00: 00 Yes 1mg Jordan Roberto Vital Signs Vital Name Observation Time Observation Value Comments S alyssa BP Systolic 2024-01-20 13:45:00 171 mm[Hg] Aurelio Roberto BP Diastolic 2024-01-20 13:45:00 117 mm[Hg] Yuval Roberto Weight Measured 2024-01-20 13:45:00 157.60 pounds Jordan Roberto Height Measured 2024-01-20 13:45:00 64.00 inches Jordan Roberto Body Temperature 2024-01-20 13:45:00 97.90 degrees Jordan Roberto Heart Rate 2024-01-20 13:45:00 104.00 /min Step hen Valdemar Roberto Respiratory Rate 2024-01-20 13:45:00 18.00 /min Jordan Roberto Respiratory Rate 2024-01-13 17:13:00 18.00 /min Jordan Roberto BP Systolic 2024-01-13 17:13:00 172 mm[Hg] Step sunita Roberto BP Diastolic 2024-01-13 17:13:00 130 mm[Hg] Yuval Roberto Weight Measured 2024-01-13 17:13:00 156.40 pounds Jordan Roberto Height Measured 2024-01-13 17:13:00 64.00 inches Jordan Roberto Body Temperature 2024-01-13 17:13:00 98.50 degrees Jordan Roberto Heart Rate 2024-01-13 17:13:00 99.00 /min Elizabeth Roberto Encounters Start Date/Time End Date/Time Encounter Type Admission Type Attending [facility] Care Department Encounter ID Source 2024-01-20 13:19:23 2024-01-20 13:19:23 Outpatient [facility] [id number] Jordan Roberto 2024-01-20 00:00:00 2024-01-20 00:00:00 Outpatient Visit [facility] [id number] Jordan Roberto 2024-01-13 16:26:23 2024-01-13 16:26:23 Outpatient [facility] [id number] Jordan Roberto 2024-01-13 00:00:00 2024-01-13 00:00:00 Outpatient Visit [facility] [id number] Jordan Roberto
[2024-01-28] MEDS ORDERED: dexAMETHasone 10 MG/ML VIAL ONE (13:24)
[2024-01-28] MEDS ORDERED: HYDROCODONE/APAP 5/325 MG TAB ONE ×2 (13:24→15:17)
[2024-01-28] MEDS ORDERED: DIAZEPAM 5 MG TABLET ONE (13:25)
--- NOTE | 2024-01-28 14:55 | RAD REPORT ---
EXAMINATION: XR PELVIS CLINICAL INDICATION: Male, 63 years old. [facility] left hip pain Bed Name: IW5 TECHNIQUE: AP Pelvis radiograph was obtained. COMPARISON: No prior exam. FINDINGS: No evidence of fracture or dislocation. Normal alignment. Mild bilateral hip joint degenera tive changes. No evidence of AVN. Soft tissues are unremarkable. IMPRESSION: No acute osseous abnormalities. Mild bilateral hip joint degenerative changes.
--- NOTE | 2024-01-28 15:15 | EDPHYS ---
Physician Documentation [facility] Name: Blas Sanchez Age: 63 yrs Sex: Male : 1960 Arrival Date: 01/28/2024 Time: 12:24 Bed 12 Private MD: ED Physician Maliha Reynoso HPI: 01/27 13:13 This 63 yrs old Male presents to ER via Wheelchair with complaints of Hip sw6 Pain - left, Leg Pain - Left. 13:13 The patient presents from home for evaluate for left hip pain for the past 4 days. He sw6 reports he thought he tweaked it over the weekend but was doing okay. He was then walking around a local thrift store today when he felt the pain get worse. He had to have a friend drive him to the ER. No medication taken for pain today. He reports the pain is better when he is still and is worse with bending and movement. No loss of bowel or bladder function. here for evaluation.. Historical: - Allergies: 12:58 No Known Allergies; ap3 - PMHx: 12:58 diabetes mellitus; Hypertensive disorder; neuropathy; ap3 - Immunization history:: Client reports having NOT received the Covid vaccine. Last tetanus immunization: unknown, Flu vaccine is not up to date. - Infectious Disease History:: Denies. - Social history:: Smoking status: Patient denies any tobacco usage or history of. ROS: 13:13 Constitutional: Negative for fever, chills, and weight loss, Neck: Negative for injury, sw6 pain, and swelling, Cardiovascular: Negative for chest pain, palpitations, and edema, Respiratory: Negative for shortness of breath, cough, wheezing, and pleuritic chest pain, Abdomen/GI: Negative for abdominal pain, nausea, vomiting, diarrhea, and constipation, Neuro: Negative for headache, weakness, numbness, tingling, and seizure, Psych: Negative for depression, anxiety, suicide ideation, homicidal ideation, and hallucinations, 13:13 Back: Positive for pain with movement, 13:13 MS/extremity: Positive for decreased range of motion, pain, Exam: 13:13 Constitutional: This is a well developed, well nourished patient who is awake, alert, sw6 and in no acute distress. 13:13 Head/Face: Normocephalic, atraumatic. Cardiovascular: Regular rate and rhythm with a normal S1 and S2. No gallops, murmurs, or rubs. Normal PMI, no JVD. No pulse deficits. Respiratory: Lungs have equal breath sounds bilaterally, clear to auscultation and percussion. No rales, rhonchi or wheezes noted. No increased work of breathing, no retractions or nasal flaring. Abdomen/GI: Soft, non-tender, with normal bowel sounds. No distension or tympany. No guarding or rebound. No evidence of tenderness throughout. 13:13 Respiratory: the patient does not display signs of respiratory distress, 13:13 Back: No vertebral body tenderness to the lumbar spine. He has tightness and tenderness to the paraspinal muscles of the low lumbar area on the left side., 13:13 Musculoskeletal/extremity: Pelvis is stable and not tender. He has decreased range of motion of the left hip due to pain. His legs are of equal length and neither is rotated or shortened with compared to the other. Vital Signs: 12:57 BP 122 / 86; Pulse 89; Resp 17; Temp 97.7; Pulse Ox 100% ; Weight 71.21 kg; Height 5 ap3 ft. 8 in. ; Pain 10/10; 12:57 Body Mass Index 23.87 (71.21 kg, 172.72 cm) ap3 12:57 Pain Scale: Adult ap3 MDM: 13:08 Medical Screening Exam initiated sw 13:13 Differential diagnosis: hip fracture, femoral neck fracture, arthritis, strain, sw6 Sciatica. 15:10 Data reviewed: radiologic studies, plain films. Response to treatment: the patient's sw6 symptoms have markedly improved after treatment. ED course: the patient presents for left hip and LBP that got worse while shopping this morning. No loss of bowel or bladder function. His pain is worse with bending and movement and is better when he is still. His pelvis is stable and not tender. He has tightness and tenderness to the left low paraspinal muscles lumbar area. Positive seated leg raise on the left side. X-ray shows no acute osseous injury. He was given pain medication as well as muscle relaxers here in the ER and his pain is improving. He remained stable here in the ER and is okay for discharge home with PCP follow-up.. 01/27 13:12 Order name: Pelvis XRAY; Complete Time: 15:09 sw 01/27 15:09 Interpretation: No acute disease. sw6 Administered Medications: 13:35 Drug: Diazepam PO 5 mg PO once Route: PO; iw 15:25 Follow up: Response: No adverse reaction jb4 13:35 Drug: HYDROcodone-acetaminophen PO 5 mg-325 mg 1 tabs PO once Route: PO; iw 15:25 Follow up: Response: No adverse reaction jb4 13:35 Drug: Decadron - Dexamethasone IVP 10 mg IVP once; please give the IV formula orally iw {Note: given PO.} Route: IVP; Site: Other; 15:25 Follow up: Response: No adverse reaction jb4 15:24 Drug: HYDROcodone-acetaminophen PO 5 mg-325 mg 1 tabs PO once Route: PO; jb4 15:25 Follow up: Response: Medication administered at discharge. jb4 Disposition Summary: 01/28/24 15:14 Discharge Ordered Notes: Location: Home sw6 Condition: Fair sw6 Diagnosis - Lumbago with sciatica, left side sw6 Followup: sw6 - With: Private Physician - When: 1 week - Reason: Re-evaluation by your physician Discharge Instructions: - Discharge Summary Sheet sw6 - Sciatica sw6 - Radicular Pain sw6 Forms: - Medication Reconciliation Form sw6 - Antibiotic Education sw6 - Prescription Opioid Use sw6 - Patient Portal Instructions sw6 - Leadership Thank You Letter 6 Prescriptions: - methocarbamol 750 mg Oral tablet - take 1 tablet ORAL route every 6 hours; 24 tablet; Refills: 0, Product sw6 Selection Permitted Signatures: Dispatcher [employer] Abbey Barajas RN RN iw Bryson, James, RN RN jb4 Seema Orr RN RN ap3 Maliha Reynoso MD MD 6 Corrections: (The following items were deleted from the chart) 13:13 13:13 Pelvis+[email or web address] ordered. PORFIRIO MONROY
--- NOTE | 2024-01-28 15:15 | ER ---
Nurse's Notes [facility] Name: Blas Sanchez Age: 63 yrs Sex: Male : 1960 Arrival Date: 01/28/2024 Time: 12:24 Bed 12 Private MD: Diagnosis: Lumbago with sciatica, left side Presentation: 01/27 12:57 Chief complaint: Patient states: he hurt his left hip a couple of days ago, but then ap3 today his left leg "gave out from under me and i fell" and patient now reports pain 10/10 pain to the left hip and radiates down the left leg. Coronavirus screen: At this time, the client does not indicate any symptoms associated with coronavirus-19. Ebola Screen: No symptoms or risks identified at this time. Initial Sepsis Screen: Does the patient meet any 2 criteria? No. Patient's initial sepsis screen is negative. Does the patient have a suspected source of infection? No. Patient's initial sepsis screen is negative. Risk Assessment: Do you want to hurt yourself or someone else? Patient reports no desire to harm self or others. Onset of symptoms was January 28, 2024. 12:57 Method Of Arrival: Wheelchair ap3 12:57 Acuity: LAVELL 3 ap3 Triage Assessment: 12:58 General: Appears uncomfortable, Behavior is calm, cooperative, appropriate for age. ap3 Pain: Complains of pain in left hip Pain radiates to left leg Pain currently is 10 out of 10 on a pain scale. Neuro: Level of Consciousness is awake, alert, obeys commands, Oriented to person, place, time, situation, Appropriate for age. Cardiovascular: Patient's skin is warm and dry. Respiratory: Airway is patent Respiratory effort is even, unlabored, Respiratory pattern is regular, symmetrical. Historical: - Allergies: 12:58 No Known Allergies; ap3 - PMHx: 12:58 diabetes mellitus; Hypertensive disorder; neuropathy; ap3 - Immunization history:: Client reports having NOT received the Covid vaccine. Last tetanus immunization: unknown, Flu vaccine is not up to date. - Infectious Disease History:: Denies. - Social history:: Smoking status: Patient denies any tobacco usage or history of. Screenin:59 Abuse screen: Denies threats or abuse. Nutritional screening: No deficits noted. ap3 Tuberculosis screening: No symptoms or risk factors identified. 15:26 [facility] ED Fall Risk Assessment (Adult) History of falling in the last 3 months, jb4 including since admission No falls in past 3 months (0 pts) Confusion or Disorientation No (0 pts) Intoxicated or Sedated No (0 pts) Impaired Gait No (0 pts) Mobility Assist Device Used No (0 pt) Altered Elimination No (0 pt) Score/Fall Risk Level 0 - 2 = Low Risk Oriented to surroundings, Maintained a safe environment. Assessment: 13:35 General: Appears in no apparent distress. Behavior is calm, cooperative. Pain: iw Complains of pain in left leg and pelvis and left hip Pain currently is 9 out of 10 on a pain scale. Neuro: Level of Consciousness is awake, alert, obeys commands, Oriented to person, place, time, situation, Moves all extremities. Cardiovascular: Patient's skin is warm and dry. Respiratory: Respiratory effort is even, unlabored, Respiratory pattern is regular. GI: Abdomen is non-distended. Derm: Skin. Musculoskeletal: Range of motion: limited in left hip. 15:26 Reassessment: Patient appears in no apparent distress at this time. Patient and/or jb4 family updated on plan of care and expected duration. Pain level reassessed. Patient is alert, oriented x 3, equal unlabored respirations, skin warm/dry/pink. Vital Signs: 12:57 BP 122 / 86; Pulse 89; Resp 17; Temp 97.7; Pulse Ox 100% ; Weight 71.21 kg; Height 5 ap3 ft. 8 in. ; Pain 10/10; 12:57 Body Mass Index 23.87 (71.21 kg, 172.72 cm) ap3 12:57 Pain Scale: Adult ap3 ED Course: 12:27 Patient arrived in ED. im 12:44 Maliha Reynoso MD is Attending Physician. sw6 12:58 Triage completed. ap3 12:59 Arm band placed on left wrist. ap3 13:20 Abbey Reynoso, RN is Primary Nurse. iw 13:42 Pelvis XRAY In Process Unspecified. EDMS 15:14 No provider procedures requiring assistance completed. iw 15:26 Patient has correct armband on for positive identification. Bed in low position. Call jb4 light in reach. Side rails up X 1. Provided Education on: discharge instructions.. 15:26 Patient did not have IV access during this emergency room visit. jb4 Administered Medications: 13:35 Drug: Diazepam PO 5 mg PO once Route: PO; iw 15:25 Follow up: Response: No adverse reaction jb4 13:35 Drug: HYDROcodone-acetaminophen PO 5 mg-325 mg 1 tabs PO once Route: PO; iw 15:25 Follow up: Response: No adverse reaction jb4 13:35 Drug: Decadron - Dexamethasone IVP 10 mg IVP once; please give the IV formula orally iw {Note: given PO.} Route: IVP; Site: Other; 15:25 Follow up: Response: No adverse reaction jb4 15:24 Drug: HYDROcodone-acetaminophen PO 5 mg-325 mg 1 tabs PO once Route: PO; jb4 15:25 Follow up: Response: Medication administered at discharge. jb4 Medication: 15:26 VIS not applicable for this client. jb4 Outcome: 15:14 Discharge ordered by . sw6 15:26 Discharged to home ambulatory, jb4 15:26 Condition: stable 15:26 Discharge instructions given to patient, Instructed on discharge instructions, follow up and referral plans. medication usage, Demonstrated understanding of instructions, follow-up care, medications, Prescriptions given X 1, 15:27 Patient left the ED. jb4 Signatures: Dispatcher [employer] EDAbbey Fitzpatrick RN RN iw Bryson, James, RN RN jb4 Seema Orr RN RN ap3 Jessi Nichole Sandra, MD MD sw6
[2024-01-28 15:32] VITALS: BP 122/86; TEMP 97.7; O2SAT 100
== END 2024-01-28 15:27 | disposition home or self-care (01) ==
LOC: ER 12:24
DX: M54.42 Lumbago with sciatica, left side (principal); I10 Essential (primary) hypertension; E11.40 Type 2 diabetes mellitus with diabetic neuropathy, unspecified
CPT/HCPCS: 72170; 96374; 99284; J1100